=== PATIENT | female | born 1980 | race Caucasian/White ===

== ENCOUNTER → 2016-10-04 | Outpatient (CLI) | payer BC, OTHER ==
--- NOTE | 2016-10-07 05:47 | SLEEPHOME ---
DATE OF PROCEDURE: 10/04/2016 ORDERED BY: Willa Ruelas. INTERPRETATION: Diagnostic home sleep testing was performed due to concern for the obstructive sleep apnea syndrome in this patient with a history of excessive somnolence. For testing, a NOX-T3 respiratory monitoring device was utilized. Continuous record was made of pulse, oxygen saturation, chest and abdominal strain, air flow and body position. 9 hours and 59 minutes of data were reviewed. Of these, 8 hours and 25 minutes were marked as time in bed. During the interval marked time in bed, there were 139 respiratory events identified of 10 seconds in duration or greater for a respiratory event index of 16.5. The events were primarily obstructive but mixed and central apneas were also seen. Baseline pulse rate was 70 beats per minute. Pulse rate ranged 48-99. Baseline oxygen saturation 94%. Lowest oxygen saturation 82%. Testing was performed in both the supine and non-supine positions. IMPRESSION: Abnormal home sleep testing with repetitive respiratory events and oxygen desaturations to 82% and a respiratory event index of 16.5 is consistent with the obstructive sleep apnea syndrome. RECOMMENDATION: The patient should be referred for formal sleep evaluation and in laboratory pressure titration.
== END ==
LOC: M SLEEP 12:34
PROVIDERS: ATTEND Nurse Practitioner Adult Health
DX: G47.30 Sleep apnea, unspecified (principal); R40.0 Somnolence

== ENCOUNTER 2016-10-28 10:30 | Emergency (ER) | payer OTHER ==
[2016-10-28 11:30] LABS: ANION GAP 11 MEQ/L (8-16); BLOOD UREA NITROGEN 13 MG/DL (7-18); CALCIUM LEVEL 8.6 MG/DL (8.5-10.1); CARBON DIOXIDE LEVEL 23 MEQ/L (21-32); CHLORIDE LEVEL 106 MEQ/L (98-107); CREATININE FOR GFR 1.03 MG/DL (0.55-1.02); GLOMERULAR FILTRATION RATE > 60.0 (>60); GLUCOSE, FASTING 85 MG/DL (70-105); POTASSIUM SERUM 3.5 MEQ/L (3.5-5.1); SODIUM LEVEL 140 MEQ/L (136-145)
[2016-10-28 11:33] LABS: BASO % 0.3 % (0.0-1.0); EOS # 0.2 K/mm3 (0.0-0.50); EOS % 2.4 % (0.0-3.0); LARGE UNSTAINED CELL # 0.1 K/mm3 (0.0-0.4); LARGE UNSTAINED CELL % 1.7 % (0.0-4.0); LYMPH # 2.3 K/mm3 (1.5-4.5); LYMPH % 27.2 % (24.0-44.0); MEAN CORPUSCULAR HEMOGLOBIN 21.7 pg (27.0-33.0); MEAN CORPUSCULAR HGB CONC 31.1 g/dl (32.0-36.5); MEAN CORPUSCULAR VOLUME 69.6 fl (80.0-96.0); MONO # 0.4 K/mm3 (0.0-0.8); MONO % 4.7 % (0.0-5.0); NEUTROPHILS # 5.1 K/mm3 (1.8-7.7); NEUTROPHILS % 63.8 % (36.0-66.0); PLATELET COUNT, AUTOMATED 325 k/mm3 (150-450); RED CELL DISTRIBUTION WIDTH 15.8 % (11.5-14.5); WHITE BLOOD COUNT 8.1 K/mm3 (4.0-10.0)
--- NOTE | 2016-10-28 11:43 | REP ---
Head CT without contrast: History: Left sided facial droop. Comparison study: November 08, 2012. CT findings: Bone window settings demonstrate an intact bony calvarium. There is no evidence of skull fracture or incidental bony calvarial lesion. The visualized paranasal sinuses appear clear. No intraorbital abnormality is seen. On soft tissue window setting images; the lateral, third, and fourth ventricles are normal in size and position. Siddiqi-white differentiation pattern is normal above and below the tentorium. There are is no evidence of intracranial hemorrhage. No mass, edema, infarction, or midline shift is seen. No extra-axial fluid collection is appreciated. Impression: Negative noncontrast head CT. Signed by Matthew Cooper MD 10/28/2016 11:35 A
[2016-10-28 12:01] LABS: INR 1.07
[2016-10-28 12:04] LABS: ADD MORPHOLOGY? YES
[2016-10-28 12:05] LABS: ANISOCYTOSIS 2+; HYPOCHROMASIA 1+; MICROCYTOSIS 2+
[2016-10-28] MEDS ORDERED: ALTEPLASE 100MG INJ (J2997) As Ordered ONE (12:19)
[2016-10-28] MEDS ORDERED: LABETALOL HCL 100 MG/20 ML VIAL As Ordered ONE (12:57)
--- NOTE | 2016-10-28 13:17 | REP ---
CT of the brain without IV contrast: Comparison is the study performed at 11 27 a earlier today. A repeat is requested by the emergency room physician. There is no hemorrhage. The cortical stripe is unremarkable. Ventricles are normal size and midline. There is no edema, mass effect or midline shift. The paranasal sinuses and mastoids are unremarkable. Impression: There is no hemorrhage, acute infarct or mass. Negative CT study of the brain. No change from the prior study. Signed by Duarte Costello MD 10/28/2016 01:08 P
--- NOTE | 2016-10-28 13:21 | REP ---
AP PORTABLE CHEST: 10/28/2016 Clinical history: Chest pain. Findings: Seated AP portable exam at 12:23 p.m. compared to 04/23/2013, 01/12/2010. The lung valles are well inflated. There is no effusion, infiltrate, atelectasis or mass. Heart is normal for projection and portable technique. There is no vascular redistribution or edema. The aorta is normal. Airway intact. Bony thorax without acute finding. Impression: 1. No acute cardiopulmonary change. Signed by Lexa Beard MD 10/28/2016 04:46 P
--- NOTE | 2016-10-28 13:41 | EDDOCDS ---
Nurse's Notes [facility] Name: Sara Alcantar Age: 36 yrs Sex: Female : 1980 Arrival Date: 10/28/2016 Time: 10:30 Bed 2 Private MD: Artemio Lock M.D. Diagnosis: Cerebral infarction, unspecified-ischemic Presentation: 10/28 10:32 Presenting complaint: Patient states: noted a left sided facial droop and difficulty pml speaking around 1000. 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 EMS reports no other neuro deficits. FSBG 113. The last date and time the patient was known to be well was was at 10:00 on October 28, 2016. An acute neurological deficit is present. The charge nurse has been notified. The patient has been moved to a treatment area. The patients blood glucose was checked before arriving to the hospital and was found to be normal. Adult Sepsis Screening: The patient does not have new or worsening altered mentation. Patient's respiratory rate is less than 22. Systolic blood pressure is greater than 100. Patient has a qSOFA score of 0- Negative Sepsis Screen. Suicide/Homicide risk assessment- the patient denies having any suicidal and/or homicidal ideations and does not present with any other emotional, behavioral or mental health complaints. Status: Patient is not a rn support services or dependent. Transition of care: patient was not received from another setting of care. 10:32 Acuity: LEXIE Level 3 pml 10:32 Method Of Arrival: Ambulance pml Triage Assessment: 10:39 The onset of the patients symptoms was less than three hours ago. General: Appears in pml no apparent distress, comfortable, Behavior is appropriate for age, cooperative. Pain: Denies pain. HIV screening NA for this visit Offered previously. The patient is triaged at the bedside. See Assessment in Nurses Notes section of ED record. Neurological: Level of Consciousness is awake, alert, Oriented to person, place, time, Meteorological Equipment Repairer are equal bilaterally Moves all extremities. Speech is slurred, Facial droop on left, Facial symmetry: tongue is midline, Pupils are PERRLA, decreased sensation to left side of face. Reports no additional symptoms. Cardiovascular: Capillary refill < 3 seconds Rhythm is sinus rhythm No ectopy. Respiratory: Airway is patent Respiratory effort is even, unlabored, Respiratory pattern is regular, symmetrical. GI: Abdomen is non- distended obese. Derm: Skin is pink, warm & dry. DIRECTOR COUNCIL ON AGING: 10:39 LMP 10/09/2015 pml Historical: - Allergies: PENICILLINS (Rash); Morphine (Vomit); Betadine (Rash); - Home Meds: 1. omeprazole 40 mg Oral cpDR 1 cap once daily 2. Lasix 20 mg oral tab 1 tab as needed (Last dose: 10/27/2016) 3. triamterene-hydrochlorothiazid 37.5-25 mg Oral tab 1 tab once daily (Last dose: 10/27/2016) - PMHx: Hypertension; GERD; - PSHx: salivary gland removed from left; parotid gland removed; Tonsillectomy; Adenoidectomy; - Social history: Smoking status: Patient states was never smoker of tobacco. No barriers to communication noted, The patient speaks fluent Yi, Speaks appropriately for age. - Family history: Not pertinent. - : The pt / caregiver states he / she is not on anticoagulants. Home medication list is obtained from the patient. - Exposure Risk Screening:: None identified. Screenin:23 Screening information is obtained from the patient. Fall risk: No risks identified. pml Assistance ADL's: requires no assistance with activities of daily living. Abuse/DV Screen: The patient / caregiver reports he/she is: not in a situation that causes fear, pain or injury. Nutritional screening: No deficits noted. Advance Directives: Currently, there is no health care proxy. home support is adequate. Assessment: 11:23 General: see triage note. pml 12:00 General: consulted with telemedicine. recommending TPA therapy . pml 12:11 General: Appears well nourished, well groomed, Behavior is appropriate for age, pml cooperative, crying. Pain: Denies pain. Neurological: Level of Consciousness is awake, alert, Oriented to person, place, time, Meteorological Equipment Repairer are equal bilaterally Moves all extremities. Cardiovascular: Capillary refill < 3 seconds. Cardiovascular: Rhythm is sinus rhythm No ectopy. Respiratory: Airway is patent Respiratory effort is even, unlabored. GI: Abdomen is non- distended obese. Derm: Skin is pink, warm & dry. 12:35 Neurological: Level of Consciousness is awake, alert, Oriented to person, place, time, pml Meteorological Equipment Repairer are equal bilaterally Moves all extremities. Speech is slurred, Facial droop on left. 12:50 General: pt reports change in symptoms - states right side of face feels numb. neuro pml check show new reported "heaviness" to right lower extremity. remote sensing specialist equal and range of motion intact, no change, facial droop to left persists, no changes. pupils equal and reactive - no change. MD Alvarez notified and pt to CT for repeat CT Scan. 13:07 Neurological: Level of Consciousness is awake, alert, Oriented to person, place, time, pml Meteorological Equipment Repairer are equal bilaterally Moves all extremities. Weakness in right leg(s) Speech is slurred, Facial droop on left, Facial symmetry: tongue is midline, Pupils are PERRLA, Numbness in right cheek and left cheek. 13:25 Neurological: Level of Consciousness is awake, alert, Oriented to person, place, time, pml Meteorological Equipment Repairer are equal bilaterally Moves all extremities. Speech is slurred, Facial droop on left, Facial symmetry: tongue is midline, Pupils are PERRLA, Numbness in left cheek. 13:36 General: Appears in no apparent distress, Behavior is appropriate for age, cooperative, pml crying. Pain: Denies pain. Neurological: Level of Consciousness is awake, alert, Oriented to person, place, time, Moves all extremities. Speech is slurred, Facial droop on left, Facial symmetry: tongue is midline, Numbness in left cheek. Cardiovascular: Capillary refill < 3 seconds Rhythm is sinus rhythm No ectopy. Respiratory: Airway is patent Respiratory effort is even, unlabored. GI: Abdomen is non- distended obese. Derm: Skin is pink, warm & dry. Vital Signs: 10:39 BP 165 / 100; Pulse 74; Resp 20; Temp 99.1(TE); Pulse Ox 100% on R/A; Weight 127.46 kg; pml Height 5 ft. 4 in. (162.56 cm); Pain 0/10; 11:45 BP 162 / 96 (auto/); pml 11:46 Pulse 75 MON; Pulse Ox 99% ; pml 12:00 BP 174 / 108 (auto/); pml 12:00 Pulse 71 MON; Pulse Ox 100% ; pml 12:42 BP 184 / 106 (auto/); pml 12:43 Pulse 63 MON; Pulse Ox 100% ; pml 12:45 BP 195 / 116 (auto/); pml 12:45 Pulse 64 MON; Pulse Ox 99% ; pml 12:59 BP 156 / 88 LA (man/lg); pml 12:59 Pulse 68 MON; Pulse Ox 99% ; pml 12:59 BP 147 / 73 (auto/); pml 13:01 BP 148 / 77 (auto/); pml 13:02 Pulse 64 MON; Pulse Ox 94% ; pml 13:16 BP 149 / 87 (auto/); pml 13:17 Pulse 64 MON; Pulse Ox 99% ; pml 13:36 BP 150 / 84; Pulse 62; Resp 18; Temp 98.8; Pulse Ox 100% ; Pain 0/10; pml 10:39 Body Mass Index 48.23 (127.46 kg, 162.56 cm) [facility] Vitals: 10:39 Glucose Measurement D-stick done by EMS. Log In Time N/A - ambulance arrival. [facility] ED Course: 10:31 Patient visited by Nai Pearce, Light Bulb Replacer. lbd 10:31 Patient moved to Waiting lbd 10:32 Artemio Lock is Private Physician. lbd 10:32 Kirti Pérez,SCOTT is Primary Nurse. lbd 10:32 Esther Olson,SCOTT is Primary Nurse. lbd 10:32 Susan Lion DO is PHCP. jo4 10:32 Patient moved to 8 lbd 10:33 Dagoberto Alvarez MD is Attending Physician. jo4 10:36 Triage Initiated pml 10:41 Patient visited by Esther Olson,SCOTT. pml 10:55 Patient visited by Susan Lion DO. jo4 10:55 Patient visited by Susan Lion DO. jo4 11:22 [facility] Payment Agreement was scanned into [employer] and attached to record. lg 11:23 The patient / caregiver is instructed regarding the plan of care and ED course. Patient pml has correct armband on for positive identification. Placed in gown. Bed in low position. Call light in reach. Side rails up X2. campus monitor on. Pulse ox on. NIBP on. 11:23 Inserted peripheral IV: 18gauge IV in left forearm Patient tolerated the procedure well.pml 11:24 Patient visited by Esther Olson,SCOTT. pml 11:44 Patient moved to 2 jmk 11:48 Partial Thromboplastin Time Sent. jmk 11:48 Prothrombin Time Profile\\E\\INR Sent. jmk 11:48 Type & Screen Sent. jmk 11:55 CT Head Without Contrast Returned. EDMS 12:36 Patient visited by Esther Olson,SCOTT. pml 12:44 Patient visited by Merced Vela PCA. rs6 12:44 EKG done. (by ED staff). Reviewed by Dagoberto Alvarez MD. rs6 12:52 Patient visited by Esther Olson,SCOTT. pml 13:08 Patient visited by Esther Olson,SCOTT. pml 13:20 CT Head Without Contrast Returned. EDMS 13:24 Patient visited by Esther Olson RN. pml 13:25 Patient visited by Esther Olson,SCOTT. pml 13:33 Other: TELESTROKE CONSULT was scanned into [employer] and attached to record. rs6 13:34 ECG/EKG was scanned into [employer] and attached to record. rs6 13:36 No procedures done that require assistance. pml 13:37 Consents was scanned into [employer] and attached to record. rs6 13:38 Patient visited by Esther Olson RN. pml Administered Medications: 12:29 Drug: Alteplase- bolus dose (0.9mg/kg x 0.1 = 0.09mg/kg, max dose 9mg) 9 mg [alteplase hs1 100 mg intravenous solution (9 mg)] Route: IVP; Infused Over: 1 mins; Site: right antecubital; 12:30 Drug: Alteplase- infusion dose (0.9mg/kg x 0.9 = 0.81mg/kg, max dose 81mg) 81 mg hs1 [alteplase 100 mg intravenous solution] {Note: 81ml/hr.} Route: IV; Rate: 1 mL/hr; Infused Over: 60 mins; Site: right antecubital; 13:37 Follow up: IV Status: Completed infusion; IV Intake: 81ml pml 13:37 Not Given (Other Intervention Used): Labetalol (CVA) 10 mg IVP at bolus every 10 pml minutes; Hold if SBP <185mm Hg. Start infusion after boluses completed. x2 Attachments: 13:37 Consents rs6 Intake: 13:37 IV: 81.00ml; Total: 81.00ml. pml Output: 13:40 Urine: 600.00ml (Goodman); Total: 600.00ml. pml Order Results: Lab Order: CBC with Diff; SPEC'M 10/28/16 10:56 Test: WHITE BLOOD COUNT; Value: 8.1; Range: 4.0-10.0; Units: K/mm3; Status: F Test: RED BLOOD COUNT; Value: 5.26; Range: 4.00-5.40; Units: M/mm3; Status: F Test: HEMOGLOBIN; Value: 11.4; Range: 12.0-16.0; Abnormal: Below low normal; Units: g/dl; Status: F Test: HEMATOCRIT; Value: 36.6; Range: 36.0-47.0; Units: %; Status: F Test: MEAN CORPUSCULAR VOLUME; Value: 69.6; Range: 80.0-96.0; Abnormal: Below low normal; Units: fl; Status: F Test: MEAN CORPUSCULAR HEMOGLOBIN; Value: 21.7; Range: 27.0-33.0; Abnormal: Below low normal; Units: pg; Status: F Test: MEAN CORPUSCULAR HGB CONC; Value: 31.1; Range: 32.0-36.5; Abnormal: Below low normal; Units: g/dl; Status: F Test: RED CELL DISTRIBUTION WIDTH; Value: 15.8; Range: 11.5-14.5; Abnormal: Above high normal; Units: %; Status: F Test: PLATELET COUNT, AUTOMATED; Value: 325; Range: 150-450; Units: k/mm3; Status: F Test: NEUTROPHILS %; Value: 63.8; Range: 36.0-66.0; Units: %; Status: F Test: LYMPH %; Value: 27.2; Range: 24.0-44.0; Units: %; Status: F Test: MONO %; Value: 4.7; Range: 0.0-5.0; Units: %; Status: F Test: EOS %; Value: 2.4; Range: 0.0-3.0; Units: %; Status: F Test: BASO %; Value: 0.3; Range: 0.0-1.0; Units: %; Status: F Test: LARGE UNSTAINED CELL %; Value: 1.7; Range: 0.0-4.0; Units: %; Status: F Test: NEUTROPHILS #; Value: 5.1; Range: 1.8-7.7; Units: K/mm3; Status: F Test: LYMPH #; Value: 2.3; Range: 1.5-4.5; Units: K/mm3; Status: F Test: MONO #; Value: 0.4; Range: 0.0-0.8; Units: K/mm3; Status: F Test: EOS #; Value: 0.2; Range: 0.0-0.50; Units: K/mm3; Status: F Test: BASO #; Value: 0.0; Range: 0.0-0.2; Units: K/mm3; Status: F Test: LARGE UNSTAINED CELL #; Value: 0.1; Range: 0.0-0.4; Units: K/mm3; Status: F Lab Order: [facility]; SPEC'M 10/28/16 10:56 Test: GLUCOSE, FASTING; Value: 85; Range: 70-105; Units: MG/DL; Status: F Test: BLOOD UREA NITROGEN; Value: 13; Range: 7-18; Units: MG/DL; Status: F Test: CREATININE FOR GFR; Value: 1.03; Range: 0.55-1.02; Abnormal: Above high normal; Units: MG/DL; Status: F Test: GLOMERULAR FILTRATION RATE; Value: > 60.0; Range: >60; Status: F Test: SODIUM LEVEL; Value: 140; Range: 136-145; Units: MEQ/L; Status: F Test: POTASSIUM SERUM; Value: 3.5; Range: 3.5-5.1; Units: MEQ/L; Status: F Test: CHLORIDE LEVEL; Value: 106; Range: 98-107; Units: MEQ/L; Status: F Test: CARBON DIOXIDE LEVEL; Value: 23; Range: 21-32; Units: MEQ/L; Status: F Test: ANION GAP; Value: 11; Range: 8-16; Units: MEQ/L; Status: F Test: CALCIUM LEVEL; Value: 8.6; Range: 8.5-10.1; Units: MG/DL; Status: F Test Note: ; Units are mL/min/1.73 m2 Chronic Kidney Disease Staging per NKF: Stage I & II GFR >=60 Normal to Mildly Decreased Stage III GFR 30-59 Moderately Decreased Stage IV GFR 15-29 Severely Decreased Stage V GFR <15 Very Little GFR Left ESRD GFR <15 on CATALOG SPECIALIST Lab Order: Partial Thromboplastin Time; [facility] 10:56 Test: PARTIAL THROMBOPLASTIN TIME; Value: 24.9; Range: 26.6-37.1; Abnormal: Below low normal; Units: SECONDS; Status: F Lab Order: Prothrombin Time Profile\\E\\INR; [facility] 10:56 Test: PROTHROMBIN TIME; Value: 14.0; Range: 12.3-14.5; Units: SECONDS; Status: F Test: INR; Value: 1.07; Status: F Test Note: ; THERAPUTIC HUMAN INR VALUES INDICATIONS NORMAL RANGES PROPHYLAXIS/TREATMENT OF: VENOUS THROMBOSIS 2.0-3.0 PULMONARY EMBOLISM 2.0-3.0 PREVENTION OF SYSTEMIC EMBOLISM FROM: TISSUE HEART VALVES 2.0-3.0 ACUTE MYOCARDIAL INFARCTION 2.0-3.0 VALVULAR HEART DISEASE 2.0-3.0 ATRIAL FIBRILLATION 2.0-3.0 MECHANICAL VALVES(HIGH RISK) 2.5-3.5 RECURRENT MYOCARDIAL INFARCTION 2.5-3.5 Lab Order: Type & Screen; 10/28/16 10:56 Test: BLOOD TYPE; Value: A POS; Status: F Test: AB SCREEN (INDIRECT KATLYN)GEL; Value: NEGATIVE; Status: F Lab Order: RBC MORPH PROF NO CHARGE; 10/28/16 10:56 Test: HYPOCHROMASIA; Value: 1+; Status: F Test: ANISOCYTOSIS; Value: 2+; Status: F Test: MICROCYTOSIS; Value: 2+; Status: F Test: PLATELET ESTIMATE; Value: NORMAL; Range: NORMAL; Status: F Radiology Order: CT Head Without Contrast Test: CT Head Without Contrast REASON FOR EXAMINATION: Left-sided facial droop; Head CT without contrast:; ; History: Left sided facial droop.; ; Comparison study: November 08, 2012.; ; CT findings: Bone window settings demonstrate an intact bony calvarium. There; is no evidence of skull fracture or incidental bony calvarial lesion. The; visualized paranasal sinuses appear clear. No intraorbital abnormality is seen.; On soft tissue window setting images; the lateral, third, and fourth ventricles; are normal in size and position. Siddiqi-white differentiation pattern is normal; above and below the tentorium. There are is no evidence of intracranial; hemorrhage. No mass, edema, infarction, or midline shift is seen. No; extra-axial fluid collection is appreciated.; ; Impression:; ; Negative noncontrast head CT.; ; ; Signed by; Matthew Cooper MD 10/28/2016 11:35 A; Radiology Order: CT Head Without Contrast Test: CT Head Without Contrast REASON FOR EXAMINATION: MD request repeat; CT of the brain without IV contrast:; ; Comparison is the study performed at 11 27 a earlier today. A repeat is; requested by the emergency room physician.; ; There is no hemorrhage. The cortical stripe is unremarkable. Ventricles are; normal size and midline. There is no edema, mass effect or midline shift. The; paranasal sinuses and mastoids are unremarkable.; ; Impression:; ; There is no hemorrhage, acute infarct or mass. Negative CT study of the brain.; No change from the prior study.; ; ; Signed by; Duarte Costello MD 10/28/2016 01:08 P; Outcome: 12:22 ER care complete, transfer ordered by Provider. pc 13:36 Discharge Assessment: Patient awake, alert and oriented x 3. No cognitive and/or pml functional deficits noted. Patient verbalized understanding of disposition instructions. patient administered narcotics - no. The following High Risk Discharge criteria are identified: Yes, Acute CVA. Transferred to [facility]. by EMS ground [place] ambulance report to accompanying personnel Accounting Lecturer Emre Cox. Condition: stable. CT Study completed. Admission hand-off: Report called to [facility]. Property :Personal belongings accompany Pt. 13:40 Patient left the ED. pml Signatures: Dispatcher [employer] EDMS Dagoberto Alvarez MD MD pc Daly, Linda, Light Bulb Replacer Unit lbd Db Thompson RN RN jmk Ganter, LoriLee, Scott Reg Livia Juarez RN RN hs1 Esther Olson RN RN pml Merced Vela, FIELD CARE COORDINATOR FIELD CARE COORDINATOR rs6 Susan Lion DO DO jo4 Corrections: (The following items were deleted from the chart) 11:52 10:39 Home Meds: Lisinopril Oral once daily (Last Dose: 10/27/2016); pml pml 11:52 10:39 Home Meds: Lasix Oral once daily (Last Dose: 10/27/2016); pml pml 12:30 12:29 Alteplase- infusion dose (0.9mg/kg x 0.9 = 0.81mg/kg, max dose 81mg) 81 mg IV at hs1 1 mL/hr in right antecubital over 60 mins hs1 MTDD
--- NOTE | 2016-10-28 13:41 | EDDOCDS ---
Physician Documentation [facility] Name: Sara Alcantar Age: 36 yrs Sex: Female : 1980 Arrival Date: 10/28/2016 Time: 10:30 Bed 2 Private MD: Artemio Lock M.D. Disposition: 10/28 12:13 Critical Care:. pc Disposition: 10/28/16 12:22 Transfer ordered to [facility]. Diagnosis is Cerebral infarction, unspecified - ischemic. - Reason for transfer: Higher level of care. - Accepting physician is Dr. Ferrer. - Condition is Stable. - Problem is new. - Symptoms are unchanged. Historical: - Allergies: PENICILLINS (Rash); Morphine (Vomit); Betadine (Rash); - Home Meds: 1. omeprazole 40 mg Oral cpDR 1 cap once daily 2. Lasix 20 mg oral tab 1 tab as needed (Last dose: 10/27/2016) 3. triamterene-hydrochlorothiazid 37.5-25 mg Oral tab 1 tab once daily (Last dose: 10/27/2016) - PMHx: Hypertension; GERD; - PSHx: salivary gland removed from left; parotid gland removed; Tonsillectomy; Adenoidectomy; - Social history: Smoking status: Patient states was never smoker of tobacco. No barriers to communication noted, The patient speaks fluent Telugu, Speaks appropriately for age. - Family history: Not pertinent. - : The pt / caregiver states he / she is not on anticoagulants. Home medication list is obtained from the patient. - Exposure Risk Screening:: None identified. [employer]: 10:39 LMP 10/09/2015 pml Exam: 12:13 Neuro: oriented x 3, no motor deficits, no sensory deficits, normal gait, cranial pc nerves normal except for a facial droop noted on left, with forehead spared, decreased sensation on forehead, left cheek and left eye, NIH 2. Vital Signs: 10:39 BP 165 / 100; Pulse 74; Resp 20; Temp 99.1(TE); Pulse Ox 100% on R/A; Weight 127.46 kg pml / 281 lbs; Height 5 ft. 4 in. (162.56 cm); Pain 0/10; 11:45 BP 162 / 96 (auto/); pml 11:46 Pulse 75 MON; Pulse Ox 99% ; pml 12:00 BP 174 / 108 (auto/); pml 12:00 Pulse 71 MON; Pulse Ox 100% ; pml 12:42 BP 184 / 106 (auto/); pml 12:43 Pulse 63 MON; Pulse Ox 100% ; pml 12:45 BP 195 / 116 (auto/); pml 12:45 Pulse 64 MON; Pulse Ox 99% ; pml 12:59 BP 156 / 88 LA (man/lg); pml 12:59 Pulse 68 MON; Pulse Ox 99% ; pml 12:59 BP 147 / 73 (auto/); pml 13:01 BP 148 / 77 (auto/); pml 13:02 Pulse 64 MON; Pulse Ox 94% ; pml 13:16 BP 149 / 87 (auto/); pml 13:17 Pulse 64 MON; Pulse Ox 99% ; pml 13:36 BP 150 / 84; Pulse 62; Resp 18; Temp 98.8; Pulse Ox 100% ; Pain 0/10; pml 10:39 Body Mass Index 48.23 (127.46 kg, 162.56 cm) pml MDM: 11:13 CT Head Without Contrast Ordered. EDMS 11:14 CBC with Diff Ordered. EDMS 11:14 BMP Ordered. EDMS 11:20 Financial registration complete. lg 11:22 [facility] Payment Agreement was scanned into [employer] and attached to record. lg 11:40 BMP Reviewed. jo4 11:44 Consult [facility]: Telemedicine Stroke Attending ordered. pc 11:44 Senior Economist/Pulse Ox/q 15 min VS ordered. pc 11:44 IV Saline Lock ordered. pc 11:44 Neuro VS q 15 Minutes ordered. pc 11:44 Patient must be on CC stretcher and weighed via bed scale ordered. pc 11:44 Rhythm Strip to chart ordered. pc 11:44 Stroke assessment pack to bedside ordered. pc 11:44 Partial Thromboplastin Time Ordered. EDMS 11:44 Prothrombin Time Profile\E\INR Ordered. EDMS 11:44 Type & Screen Ordered. EDMS 11:44 Chest, 1 View Ordered. EDMS 11:45 ECG WITH READING ER PHYS+CARDIAG ordered. EDMS 11:49 Consult [facility]: Telemedicine Stroke Attending complete. pc 11:58 CT Head Without Contrast Reviewed. pc 12:05 RBC MORPH PROF NO CHARGE Ordered. EDMS 12:12 Partial Thromboplastin Time Reviewed. jo4 12:12 Alteplase- bolus dose (0.9mg/kg x 0.1 = 0.09mg/kg, max dose 9mg) 9 mg IVP bolus over 1 pc mins ordered. 12:12 Alteplase- infusion dose (0.9mg/kg x 0.9 = 0.81mg/kg, max dose 81mg) 81 mg IV at 1 pc mL/hr once over 60 mins; Do not filter. Flush line with 50mL NS after infusion complete. ordered. 12:12 Avoid arterial punctures or frequent veno-punctures ordered. pc 12:12 Senior Economist/BP q 15 minutes/Neurovitals Q 15 minutes for 2 hours after rTPA ordered.pc 12:12 DO NOT insert Goodman AFTER tPA started ordered. pc 12:12 IV Saline Lock, Place second line, 18G or larger, in A/C vein ordered. pc 12:12 If SBP < 185mm Hg and/or DBP < 100mm Hg, proceed to rTPA ordered. pc 12:12 No Heparin, LMW Heparin, Warfarin, other anticoagulants (Pradaxa, Xarelto, etc.) or pc Antiplatelt Agents, (ASA, clopidogrel) from start of t-PA infusion ordered. 12:12 Notify MD if SBP >185mm Hg or <90mm Hg after t-PA initiated ordered. pc 12:12 Vital Signs, Neuro checks q15min for 2 hrs after t-PA infusion, then q30 min x 6 hrs pc ordered. 12:13 Prothrombin Time Profile\E\INR Reviewed. jo4 12:13 Differential Diagnosis: CVA v Tang's; prior parotid surgeries. Plan: CT, d/w [facility]. The patient has been re-examined and re-evaluated. There is no appreciated change of the patient's symptoms at this time. Physician consultation: Dr. Ferrer regarding patient's condition, and via Telemedicine, he has decided that she requires thrombolytic therapy, she has consented and she will be transferred to [facility]. Disposition: The historical points, examination findings, and any diagnostic results supporting the provided diagnosis, were discussed with the patient or legal guardian. The decision to transfer to the patient to another facility was explained. 12:30 Alteplase- infusion dose (0.9mg/kg x 0.9 = 0.81mg/kg, max dose 81mg) 81 mg IV at 1 hs1 mL/hr once over 60 mins; Do not filter. Flush line with 50mL NS after infusion complete. ordered. 12:39 Test interpretation: EKG. pc 12:49 CT Head Without Contrast Ordered. EDMS 12:50 Labetalol (CVA) 10 mg IVP at bolus every 10 minutes; Hold if SBP <185mm Hg. Start pc infusion after boluses completed. x2 ordered. 12:51 CBC with Diff Reviewed. pc 12:51 Type & Screen Reviewed. pc 12:51 RBC MORPH PROF NO CHARGE Reviewed. pc 13:12 Test interpretation: X-RAY - interpreted by Radiologist and personally reviewed, 1 view pc chest normal, interpreted by Radiologist and personally reviewed, Head CT; normal, and 2nd CT, after patient complained of right leg and facial symptoms during alteplase infusion, was also negative. 13:33 Other: TELESTROKE CONSULT was scanned into [employer] and attached to record. rs6 13:34 ECG/EKG was scanned into [facility] [employer] and attached to record. rs 13:37 Consents was scanned into [employer] and attached to record. rs6 EC:39 Rate is 69 beats/min. Rhythm is regular, Normal Sinus Rhythm. MT interval is normal. pc QRS interval is normal. QT interval is normal. No Q waves. T waves are Normal. No ST changes noted. Clinical impression: Normal Sinus Rhythm and LAFB. Administered Medications: 12:29 Drug: Alteplase- bolus dose (0.9mg/kg x 0.1 = 0.09mg/kg, max dose 9mg) 9 mg [alteplase hs1 100 mg intravenous solution (9 mg)] Route: IVP; Infused Over: 1 mins; Site: right antecubital; 12:30 Drug: Alteplase- infusion dose (0.9mg/kg x 0.9 = 0.81mg/kg, max dose 81mg) 81 mg hs1 [alteplase 100 mg intravenous solution] {Note: 81ml/hr.} Route: IV; Rate: 1 mL/hr; Infused Over: 60 mins; Site: right antecubital; 13:37 Follow up: IV Status: Completed infusion; IV Intake: 81ml pml 13:37 Not Given (Other Intervention Used): Labetalol (CVA) 10 mg IVP at bolus every 10 pml minutes; Hold if SBP <185mm Hg. Start infusion after boluses completed. x2 Critical Care Time: 12:13 Critical care time: Bedside Care: 35 minutes, Consultation: 20 minutes, Family pc Intervention: 20 minutes. Total time: 75 minutes Signatures: Dispatcher [employer] Dagoberto Sanchez MD MD pc Ganter, LoriLee, Reg Reg lg Livia Esparza RN RN hs1 Esther Olson RN RN pml Merced Vela, SAGE [employer] SALES EXECUTIVE rs6 Susan Lion, DO LEMA jo4 The chart was reviewed and I authenticate all verbal orders and agree with the evaluation and treatment provided.Corrections: (The following items were deleted from the chart) 11:49 11:44 Accucheck ordered. pc shyk 11:52 10:39 Home Meds: Lisinopril Oral once daily (Last Dose: 10/27/2016); pml pml 11:52 10:39 Home Meds: Lasix Oral once daily (Last Dose: 10/27/2016); pml pml Attachments: 11:22 [facility] Payment Agreement lg 13:34 ECG/EKG rs6 MTDD
--- NOTE | 2016-10-29 08:50 | ECGEPIP ---
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
--- NOTE | 2016-10-30 14:41 | EDDOCDS ---
Nurse's Notes [facility] Name: Queenie Alcantar Age: 36 yrs Sex: Female : 1980 Arrival Date: 10/28/2016 Time: 10:30 Bed 2 Private MD: Artemio Lock M.D. Diagnosis: Cerebral infarction, unspecified-ischemic Presentation: 10/28 10:32 Presenting complaint: Patient states: noted a left sided facial droop and difficulty pml speaking around 1000. 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 EMS reports no other neuro deficits. FSBG 113. The last date and time the patient was known to be well was was at 10:00 on October 28, 2016. An acute neurological deficit is present. The charge nurse has been notified. The patient has been moved to a treatment area. The patients blood glucose was checked before arriving to the hospital and was found to be normal. Adult Sepsis Screening: The patient does not have new or worsening altered mentation. Patient's respiratory rate is less than 22. Systolic blood pressure is greater than 100. Patient has a qSOFA score of 0- Negative Sepsis Screen. Suicide/Homicide risk assessment- the patient denies having any suicidal and/or homicidal ideations and does not present with any other emotional, behavioral or mental health complaints. 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 Transition of care: patient was not received from another setting of care. 10:32 Acuity: LEXIE Level 3 pml 10:32 Method Of Arrival: Ambulance pml Triage Assessment: 10:39 The onset of the patients symptoms was less than three hours ago. General: Appears in pml no apparent distress, comfortable, Behavior is appropriate for age, cooperative. Pain: Denies pain. HIV screening NA for this visit Offered previously. The patient is triaged at the bedside. See Assessment in Nurses Notes section of ED record. Neurological: Level of Consciousness is awake, alert, Oriented to person, place, time, Wiping Cloth Cutter are equal bilaterally Moves all extremities. Speech is slurred, Facial droop on left, Facial symmetry: tongue is midline, Pupils are PERRLA, decreased sensation to left side of face. Reports no additional symptoms. Cardiovascular: Capillary refill < 3 seconds Rhythm is sinus rhythm No ectopy. Respiratory: Airway is patent Respiratory effort is even, unlabored, Respiratory pattern is regular, symmetrical. GI: Abdomen is non- distended obese. Derm: Skin is pink, warm & dry. DATA COLLECTOR: 10:39 LMP 10/09/2015 pml Historical: - Allergies: PENICILLINS (Rash); Morphine (Vomit); Betadine (Rash); - Home Meds: 1. omeprazole 40 mg Oral cpDR 1 cap once daily 2. Lasix 20 mg oral tab 1 tab as needed (Last dose: 10/27/2016) 3. triamterene-hydrochlorothiazid 37.5-25 mg Oral tab 1 tab once daily (Last dose: 10/27/2016) - PMHx: Hypertension; GERD; - PSHx: salivary gland removed from left; parotid gland removed; Tonsillectomy; Adenoidectomy; - Social history: Smoking status: Patient states was never smoker of tobacco. No barriers to communication noted, The patient speaks fluent Syriac, Speaks appropriately for age. - Family history: Not pertinent. - : The pt / caregiver states he / she is not on anticoagulants. Home medication list is obtained from the patient. - Exposure Risk Screening:: None identified. Screenin:23 Screening information is obtained from the patient. Fall risk: No risks identified. pml Assistance ADL's: requires no assistance with activities of daily living. Abuse/DV Screen: The patient / caregiver reports he/she is: not in a situation that causes fear, pain or injury. Nutritional screening: No deficits noted. Advance Directives: Currently, there is no health care proxy. home support is adequate. Assessment: 11:23 General: see triage note. pml 12:00 General: consulted with telemedicine. recommending TPA therapy . pml 12:11 General: Appears well nourished, well groomed, Behavior is appropriate for age, pml cooperative, crying. Pain: Denies pain. Neurological: Level of Consciousness is awake, alert, Oriented to person, place, time, Wiping Cloth Cutter are equal bilaterally Moves all extremities. Cardiovascular: Capillary refill < 3 seconds. Cardiovascular: Rhythm is sinus rhythm No ectopy. Respiratory: Airway is patent Respiratory effort is even, unlabored. GI: Abdomen is non- distended obese. Derm: Skin is pink, warm & dry. 12:35 Neurological: Level of Consciousness is awake, alert, Oriented to person, place, time, pml Wiping Cloth Cutter are equal bilaterally Moves all extremities. Speech is slurred, Facial droop on left. 12:50 General: pt reports change in symptoms - states right side of face feels numb. neuro pml check show new reported "heaviness" to right lower extremity. wheel and pinion inspector equal and range of motion intact, no change, facial droop to left persists, no changes. pupils equal and reactive - no change. MD Alvarez notified and pt to CT for repeat CT Scan. 13:07 Neurological: Level of Consciousness is awake, alert, Oriented to person, place, time, pml Wiping Cloth Cutter are equal bilaterally Moves all extremities. Weakness in right leg(s) Speech is slurred, Facial droop on left, Facial symmetry: tongue is midline, Pupils are PERRLA, Numbness in right cheek and left cheek. 13:25 Neurological: Level of Consciousness is awake, alert, Oriented to person, place, time, pml Wiping Cloth Cutter are equal bilaterally Moves all extremities. Speech is slurred, Facial droop on left, Facial symmetry: tongue is midline, Pupils are PERRLA, Numbness in left cheek. 13:36 General: Appears in no apparent distress, Behavior is appropriate for age, cooperative, pml crying. Pain: Denies pain. Neurological: Level of Consciousness is awake, alert, Oriented to person, place, time, Moves all extremities. Speech is slurred, Facial droop on left, Facial symmetry: tongue is midline, Numbness in left cheek. Cardiovascular: Capillary refill < 3 seconds Rhythm is sinus rhythm No ectopy. Respiratory: Airway is patent Respiratory effort is even, unlabored. GI: Abdomen is non- distended obese. Derm: Skin is pink, warm & dry. Vital Signs: 10:39 BP 165 / 100; Pulse 74; Resp 20; Temp 99.1(TE); Pulse Ox 100% on R/A; Weight 127.46 kg; pml Height 5 ft. 4 in. (162.56 cm); Pain 0/10; 11:45 BP 162 / 96 (auto/); pml 11:46 Pulse 75 MON; Pulse Ox 99% ; pml 12:00 BP 174 / 108 (auto/); pml 12:00 Pulse 71 MON; Pulse Ox 100% ; pml 12:42 BP 184 / 106 (auto/); pml 12:43 Pulse 63 MON; Pulse Ox 100% ; pml 12:45 BP 195 / 116 (auto/); pml 12:45 Pulse 64 MON; Pulse Ox 99% ; pml 12:59 BP 156 / 88 LA (man/lg); pml 12:59 Pulse 68 MON; Pulse Ox 99% ; pml 12:59 BP 147 / 73 (auto/); pml 13:01 BP 148 / 77 (auto/); pml 13:02 Pulse 64 MON; Pulse Ox 94% ; pml 13:16 BP 149 / 87 (auto/); pml 13:17 Pulse 64 MON; Pulse Ox 99% ; pml 13:36 BP 150 / 84; Pulse 62; Resp 18; Temp 98.8; Pulse Ox 100% ; Pain 0/10; pml 10:39 Body Mass Index 48.23 (127.46 kg, 162.56 cm) [facility] Vitals: 10:39 Glucose Measurement D-stick done by EMS. Log In Time N/A - ambulance arrival. [facility] ED Course: 10:31 Patient visited by Nai Pearce, Joint Yarner. lbd 10:31 Patient moved to Waiting lbd 10:32 Artemio Lock is Private Physician. lbd 10:32 Kirti Pérez,SCOTT is Primary Nurse. lbd 10:32 Esther Olson,SCOTT is Primary Nurse. lbd 10:32 Susan Lion DO is PHCP. jo4 10:32 Patient moved to 8 lbd 10:33 Dagoberto Alvarez MD is Attending Physician. jo4 10:36 Triage Initiated pml 10:41 Patient visited by Esther Olson,SCOTT. pml 10:55 Patient visited by Susan Lion DO. jo4 10:55 Patient visited by Susan Lion DO. jo4 11:22 [facility] Payment Agreement was scanned into [employer] and attached to record. lg 11:23 The patient / caregiver is instructed regarding the plan of care and ED course. Patient pml has correct armband on for positive identification. Placed in gown. Bed in low position. Call light in reach. Side rails up X2. conveyor monitor on. Pulse ox on. NIBP on. 11:23 Inserted peripheral IV: 18gauge IV in left forearm Patient tolerated the procedure well.pml 11:24 Patient visited by Esther Olson,SCOTT. pml 11:44 Patient moved to 2 jmk 11:48 Partial Thromboplastin Time Sent. jmk 11:48 Prothrombin Time Profile\\E\\INR Sent. jmk 11:48 Type & Screen Sent. jmk 11:55 CT Head Without Contrast Returned. EDMS 12:36 Patient visited by Esther Olson,SCOTT. pml 12:44 Patient visited by Merced Vela PCA. rs6 12:44 EKG done. (by ED staff). Reviewed by Dagoberto Alvarez MD. rs6 12:52 Patient visited by Esther Olson,SCOTT. pml 13:08 Patient visited by Esther Olson,SCOTT. pml 13:20 CT Head Without Contrast Returned. EDMS 13:24 Patient visited by Esther Olson,SCOTT. pml 13:25 Patient visited by Esther Olson,SCOTT. pml 13:33 Other: TELESTROKE CONSULT was scanned into [employer] and attached to record. rs6 13:34 ECG/EKG was scanned into [employer] and attached to record. rs6 13:36 No procedures done that require assistance. pml 13:37 Consents was scanned into [employer] and attached to record. rs6 13:38 Patient visited by Esther Olson RN. pml 14:04 Chest, 1 View Returned. EDMS 15:25 T-Sheet-- Draft Copy was scanned into [employer] and attached to record. gb 15:26 Rhythm Strip was scanned into [employer] and attached to record. gb 02 09:23 EKG-ADULT Returned. EDMS Administered Medications: 10/28 12:29 Drug: Alteplase- bolus dose (0.9mg/kg x 0.1 = 0.09mg/kg, max dose 9mg) 9 mg [alteplase hs1 100 mg intravenous solution (9 mg)] Route: IVP; Infused Over: 1 mins; Site: right antecubital; 12:30 Drug: Alteplase- infusion dose (0.9mg/kg x 0.9 = 0.81mg/kg, max dose 81mg) 81 mg hs1 [alteplase 100 mg intravenous solution] {Note: 81ml/hr.} Route: IV; Rate: 1 mL/hr; Infused Over: 60 mins; Site: right antecubital; 13:37 Follow up: IV Status: Completed infusion; IV Intake: 81ml pml 13:37 Not Given (Other Intervention Used): Labetalol (CVA) 10 mg IVP at bolus every 10 pml minutes; Hold if SBP <185mm Hg. Start infusion after boluses completed. x2 Attachments: 13:37 Consents rs6 15:26 Rhythm Strip gb Intake: 13:37 IV: 81.00ml; Total: 81.00ml. pml Output: 13:40 Urine: 600.00ml (Goodman); Total: 600.00ml. pml Order Results: Lab Order: CBC with Diff; SPEC'M 10/28/16 10:56 Test: WHITE BLOOD COUNT; Value: 8.1; Range: 4.0-10.0; Units: K/mm3; Status: F Test: RED BLOOD COUNT; Value: 5.26; Range: 4.00-5.40; Units: M/mm3; Status: F Test: HEMOGLOBIN; Value: 11.4; Range: 12.0-16.0; Abnormal: Below low normal; Units: g/dl; Status: F Test: HEMATOCRIT; Value: 36.6; Range: 36.0-47.0; Units: %; Status: F Test: MEAN CORPUSCULAR VOLUME; Value: 69.6; Range: 80.0-96.0; Abnormal: Below low normal; Units: fl; Status: F Test: MEAN CORPUSCULAR HEMOGLOBIN; Value: 21.7; Range: 27.0-33.0; Abnormal: Below low normal; Units: pg; Status: F Test: MEAN CORPUSCULAR HGB CONC; Value: 31.1; Range: 32.0-36.5; Abnormal: Below low normal; Units: g/dl; Status: F Test: RED CELL DISTRIBUTION WIDTH; Value: 15.8; Range: 11.5-14.5; Abnormal: Above high normal; Units: %; Status: F Test: PLATELET COUNT, AUTOMATED; Value: 325; Range: 150-450; Units: k/mm3; Status: F Test: NEUTROPHILS %; Value: 63.8; Range: 36.0-66.0; Units: %; Status: F Test: LYMPH %; Value: 27.2; Range: 24.0-44.0; Units: %; Status: F Test: MONO %; Value: 4.7; Range: 0.0-5.0; Units: %; Status: F Test: EOS %; Value: 2.4; Range: 0.0-3.0; Units: %; Status: F Test: BASO %; Value: 0.3; Range: 0.0-1.0; Units: %; Status: F Test: LARGE UNSTAINED CELL %; Value: 1.7; Range: 0.0-4.0; Units: %; Status: F Test: NEUTROPHILS #; Value: 5.1; Range: 1.8-7.7; Units: K/mm3; Status: F Test: LYMPH #; Value: 2.3; Range: 1.5-4.5; Units: K/mm3; Status: F Test: MONO #; Value: 0.4; Range: 0.0-0.8; Units: K/mm3; Status: F Test: EOS #; Value: 0.2; Range: 0.0-0.50; Units: K/mm3; Status: F Test: BASO #; Value: 0.0; Range: 0.0-0.2; Units: K/mm3; Status: F Test: LARGE UNSTAINED CELL #; Value: 0.1; Range: 0.0-0.4; Units: K/mm3; Status: F Lab Order: [facility]; SPEC'M 10/28/16 10:56 Test: GLUCOSE, FASTING; Value: 85; Range: 70-105; Units: MG/DL; Status: F Test: BLOOD UREA NITROGEN; Value: 13; Range: 7-18; Units: MG/DL; Status: F Test: CREATININE FOR GFR; Value: 1.03; Range: 0.55-1.02; Abnormal: Above high normal; Units: MG/DL; Status: F Test: GLOMERULAR FILTRATION RATE; Value: > 60.0; Range: >60; Status: F Test: SODIUM LEVEL; Value: 140; Range: 136-145; Units: MEQ/L; Status: F Test: POTASSIUM SERUM; Value: 3.5; Range: 3.5-5.1; Units: MEQ/L; Status: F Test: CHLORIDE LEVEL; Value: 106; Range: 98-107; Units: MEQ/L; Status: F Test: CARBON DIOXIDE LEVEL; Value: 23; Range: 21-32; Units: MEQ/L; Status: F Test: ANION GAP; Value: 11; Range: 8-16; Units: MEQ/L; Status: F Test: CALCIUM LEVEL; Value: 8.6; Range: 8.5-10.1; Units: MG/DL; Status: F Test Note: ; Units are mL/min/1.73 m2 Chronic Kidney Disease Staging per NKF: Stage I & II GFR >=60 Normal to Mildly Decreased Stage III GFR 30-59 Moderately Decreased Stage IV GFR 15-29 Severely Decreased Stage V GFR <15 Very Little GFR Left ESRD GFR <15 on DRUM TENDER Lab Order: Partial Thromboplastin Time; 10/28/16 10:56 Test: PARTIAL THROMBOPLASTIN TIME; Value: 24.9; Range: 26.6-37.1; Abnormal: Below low normal; Units: SECONDS; Status: F Lab Order: Prothrombin Time Profile\\E\\INR; 10/28/16 10:56 Test: PROTHROMBIN TIME; Value: 14.0; Range: 12.3-14.5; Units: SECONDS; Status: F Test: INR; Value: 1.07; Status: F Test Note: ; THERAPUTIC HUMAN INR VALUES INDICATIONS NORMAL RANGES PROPHYLAXIS/TREATMENT OF: VENOUS THROMBOSIS 2.0-3.0 PULMONARY EMBOLISM 2.0-3.0 PREVENTION OF SYSTEMIC EMBOLISM FROM: TISSUE HEART VALVES 2.0-3.0 ACUTE MYOCARDIAL INFARCTION 2.0-3.0 VALVULAR HEART DISEASE 2.0-3.0 ATRIAL FIBRILLATION 2.0-3.0 MECHANICAL VALVES(HIGH RISK) 2.5-3.5 RECURRENT MYOCARDIAL INFARCTION 2.5-3.5 Lab Order: Type & Screen; 10/28/16 10:56 Test: BLOOD TYPE; Value: A POS; Status: F Test: AB SCREEN (INDIRECT KATLYN)GEL; Value: NEGATIVE; Status: F Lab Order: RBC MORPH PROF NO CHARGE; 10/28/16 10:56 Test: HYPOCHROMASIA; Value: 1+; Status: F Test: ANISOCYTOSIS; Value: 2+; Status: F Test: MICROCYTOSIS; Value: 2+; Status: F Test: PLATELET ESTIMATE; Value: NORMAL; Range: NORMAL; Status: F Radiology Order: CT Head Without Contrast Test: CT Head Without Contrast REASON FOR EXAMINATION: Left-sided facial droop; Head CT without contrast:; ; History: Left sided facial droop.; ; Comparison study: November 08, 2012.; ; CT findings: Bone window settings demonstrate an intact bony calvarium. There; is no evidence of skull fracture or incidental bony calvarial lesion. The; visualized paranasal sinuses appear clear. No intraorbital abnormality is seen.; On soft tissue window setting images; the lateral, third, and fourth ventricles; are normal in size and position. Siddiqi-white differentiation pattern is normal; above and below the tentorium. There are is no evidence of intracranial; hemorrhage. No mass, edema, infarction, or midline shift is seen. No; extra-axial fluid collection is appreciated.; ; Impression:; ; Negative noncontrast head CT.; ; ; Signed by; Matthew Cooper MD 10/28/2016 11:35 A; Radiology Order: Chest, 1 View Test: Chest, 1 View REASON FOR EXAMINATION: CVA <4.5hrs; AP PORTABLE CHEST: 10/28/2016; ; Clinical history: Chest pain.; ; Findings: Seated AP portable exam at 12:23 p.m. compared to 04/23/2013,; 01/12/2010. The lung valles are well inflated. There is no effusion,; infiltrate, atelectasis or mass. Heart is normal for projection and portable; technique. There is no vascular redistribution or edema. The aorta is normal.; Airway intact. Bony thorax without acute finding.; ; Impression:; ; 1. No acute cardiopulmonary change.; ; ; Signed by; Lexa Beard MD 10/28/2016 04:46 P; Radiology Order: EKG-ADULT Test: EKG-ADULT REASON FOR EXAMINATION: CVA <4.5hrs; Stationary ECG Study; [facility] - ED; ; Test Date: 2016-10-28; Pat Name: QUEENIE ALCANTAR Department:; Room: -; Gender: F Director Of Strategic Communications: rs; : 1980 Requested By: Dagoberto Bailey; Order Number: [id number] Reading MD: Cheryl George; Measurements; Intervals [place]; Rate: 69 P: 45; OH: 168 QRS: -1; QRSD: 101 T: 11; QT: 439; QTc: 472; Interpretive Statements; SINUS RHYTHM; POSSIBLE LEFT VENTRICULAR HYPERTROPHY; SIMILAR 04/23/13; Electronically Signed On 10-29-2016 8:50:10 EST by Cheryl George; Radiology Order: CT Head Without Contrast Test: CT Head Without Contrast REASON FOR EXAMINATION: MD request repeat; CT of the brain without IV contrast:; ; Comparison is the study performed at 11 27 a earlier today. A repeat is; requested by the emergency room physician.; ; There is no hemorrhage. The cortical stripe is unremarkable. Ventricles are; normal size and midline. There is no edema, mass effect or midline shift. The; paranasal sinuses and mastoids are unremarkable.; ; Impression:; ; There is no hemorrhage, acute infarct or mass. Negative CT study of the brain.; No change from the prior study.; ; ; Signed by; Duarte Costello MD 10/28/2016 01:08 P; Outcome: 12:22 ER care complete, transfer ordered by Provider. pc 13:36 Discharge Assessment: Patient awake, alert and oriented x 3. No cognitive and/or pml functional deficits noted. Patient verbalized understanding of disposition instructions. patient administered narcotics - no. The following High Risk Discharge criteria are identified: Yes, Acute CVA. [facility] to accompanying personnel Manager Pharmacy Emre INK PRINTERReji Cox. Condition: stable. CT Study completed. Admission hand-off: Report called to [facility]. Property :Personal belongings accompany Pt. 13:40 Patient left the ED. pml Signatures: Dispatcher [employer] EDMS Dagoberto Alvarez MD MD pc Nai Pearce, Joint Yarner Unit lbd Db Thompson RN RN Ev Coreas, Reg Reg gb Cristal Sneed, Reg Reg lg Livia Esparza RN RN hs1 Esther Olson RN RN pml Merced Vela, SALES SERVICE ASSISTANT SALES SERVICE ASSISTANT rs6 Susan Lion DO DO jo4 Corrections: (The following items were deleted from the chart) 11:52 10:39 Home Meds: Lisinopril Oral once daily (Last Dose: 10/27/2016); pml pml 11:52 10:39 Home Meds: Lasix Oral once daily (Last Dose: 10/27/2016); pml pml 12:30 12:29 Alteplase- infusion dose (0.9mg/kg x 0.9 = 0.81mg/kg, max dose 81mg) 81 mg IV at hs1 1 mL/hr in right antecubital over 60 mins hs1 Chart Complete MTDD
--- NOTE | 2016-10-30 14:41 | EDDOCDS ---
Physician Documentation [facility] Name: Sara Alcantar Age: 36 yrs Sex: Female : 1980 Arrival Date: 10/28/2016 Time: 10:30 Bed 2 Private MD: Artemio Lock M.D. Disposition: 10/28 12:13 Critical Care:. pc Disposition: 10/28/16 12:22 Transfer ordered to [facility]. Diagnosis is Cerebral infarction, unspecified - ischemic. - Reason for transfer: Higher level of care. - Accepting physician is Dr. Ferrer. - Condition is Stable. - Problem is new. - Symptoms are unchanged. Historical: - Allergies: PENICILLINS (Rash); Morphine (Vomit); Betadine (Rash); - Home Meds: 1. omeprazole 40 mg Oral cpDR 1 cap once daily 2. Lasix 20 mg oral tab 1 tab as needed (Last dose: 10/27/2016) 3. triamterene-hydrochlorothiazid 37.5-25 mg Oral tab 1 tab once daily (Last dose: 10/27/2016) - PMHx: Hypertension; GERD; - PSHx: salivary gland removed from left; parotid gland removed; Tonsillectomy; Adenoidectomy; - Social history: Smoking status: Patient states was never smoker of tobacco. No barriers to communication noted, The patient speaks fluent Georgian, Speaks appropriately for age. - Family history: Not pertinent. - : The pt / caregiver states he / she is not on anticoagulants. Home medication list is obtained from the patient. - Exposure Risk Screening:: None identified. REGISTERED NURSE FLOAT POOL: 10:39 LMP 10/09/2015 pml Exam: 12:13 Neuro: oriented x 3, no motor deficits, no sensory deficits, normal gait, cranial pc nerves normal except for a facial droop noted on left, with forehead spared, decreased sensation on forehead, left cheek and left eye, NIH 2. Vital Signs: 10:39 BP 165 / 100; Pulse 74; Resp 20; Temp 99.1(TE); Pulse Ox 100% on R/A; Weight 127.46 kg pml / 281 lbs; Height 5 ft. 4 in. (162.56 cm); Pain 0/10; 11:45 BP 162 / 96 (auto/); pml 11:46 Pulse 75 MON; Pulse Ox 99% ; pml 12:00 BP 174 / 108 (auto/); pml 12:00 Pulse 71 MON; Pulse Ox 100% ; pml 12:42 BP 184 / 106 (auto/); pml 12:43 Pulse 63 MON; Pulse Ox 100% ; pml 12:45 BP 195 / 116 (auto/); pml 12:45 Pulse 64 MON; Pulse Ox 99% ; pml 12:59 BP 156 / 88 LA (man/lg); pml 12:59 Pulse 68 MON; Pulse Ox 99% ; pml 12:59 BP 147 / 73 (auto/); pml 13:01 BP 148 / 77 (auto/); pml 13:02 Pulse 64 MON; Pulse Ox 94% ; pml 13:16 BP 149 / 87 (auto/); pml 13:17 Pulse 64 MON; Pulse Ox 99% ; pml 13:36 BP 150 / 84; Pulse 62; Resp 18; Temp 98.8; Pulse Ox 100% ; Pain 0/10; pml 10:39 Body Mass Index 48.23 (127.46 kg, 162.56 cm) pml MDM: 11:13 CT Head Without Contrast Ordered. EDMS 11:14 CBC with Diff Ordered. EDMS 11:14 BMP Ordered. EDMS 11:20 Financial registration complete. lg 11:22 [facility] Payment Agreement was scanned into [employer] and attached to record. lg 11:40 BMP Reviewed. jo4 11:44 Consult [facility]: Telemedicine Stroke Attending ordered. pc 11:44 Supervisor Shuttle Fitting/Pulse Ox/q 15 min VS ordered. pc 11:44 IV Saline Lock ordered. pc 11:44 Neuro VS q 15 Minutes ordered. pc 11:44 Patient must be on CC stretcher and weighed via bed scale ordered. pc 11:44 Rhythm Strip to chart ordered. pc 11:44 Stroke assessment pack to bedside ordered. pc 11:44 Partial Thromboplastin Time Ordered. EDMS 11:44 Prothrombin Time Profile\E\INR Ordered. EDMS 11:44 Type & Screen Ordered. EDMS 11:44 Chest, 1 View Ordered. EDMS 11:45 ECG WITH READING ER PHYS+CARDIAG ordered. EDMS 11:49 Consult [facility]: Telemedicine Stroke Attending complete. pc 11:58 CT Head Without Contrast Reviewed. pc 12:05 RBC MORPH PROF NO CHARGE Ordered. EDMS 12:12 Partial Thromboplastin Time Reviewed. jo4 12:12 Alteplase- bolus dose (0.9mg/kg x 0.1 = 0.09mg/kg, max dose 9mg) 9 mg IVP bolus over 1 pc mins ordered. 12:12 Alteplase- infusion dose (0.9mg/kg x 0.9 = 0.81mg/kg, max dose 81mg) 81 mg IV at 1 pc mL/hr once over 60 mins; Do not filter. Flush line with 50mL NS after infusion complete. ordered. 12:12 Avoid arterial punctures or frequent veno-punctures ordered. pc 12:12 Supervisor Shuttle Fitting/BP q 15 minutes/Neurovitals Q 15 minutes for 2 hours after rTPA ordered.pc 12:12 DO NOT insert Goodman AFTER tPA started ordered. pc 12:12 IV Saline Lock, Place second line, 18G or larger, in A/C vein ordered. pc 12:12 If SBP < 185mm Hg and/or DBP < 100mm Hg, proceed to rTPA ordered. pc 12:12 No Heparin, LMW Heparin, Warfarin, other anticoagulants (Pradaxa, Xarelto, etc.) or pc Antiplatelt Agents, (ASA, clopidogrel) from start of t-PA infusion ordered. 12:12 Notify MD if SBP >185mm Hg or <90mm Hg after t-PA initiated ordered. pc 12:12 Vital Signs, Neuro checks q15min for 2 hrs after t-PA infusion, then q30 min x 6 hrs pc ordered. 12:13 Prothrombin Time Profile\E\INR Reviewed. jo4 12:13 Differential Diagnosis: CVA v Tang's; prior parotid surgeries. Plan: CT, d/w [facility]. The patient has been re-examined and re-evaluated. There is no appreciated change of the patient's symptoms at this time. Physician consultation: Dr. Ferrer regarding patient's condition, and via Telemedicine, he has decided that she requires thrombolytic therapy, she has consented and she will be transferred to [facility]. Disposition: The historical points, examination findings, and any diagnostic results supporting the provided diagnosis, were discussed with the patient or legal guardian. The decision to transfer to the patient to another facility was explained. 12:30 Alteplase- infusion dose (0.9mg/kg x 0.9 = 0.81mg/kg, max dose 81mg) 81 mg IV at 1 hs1 mL/hr once over 60 mins; Do not filter. Flush line with 50mL NS after infusion complete. ordered. 12:39 Test interpretation: EKG. pc 12:49 CT Head Without Contrast Ordered. EDMS 12:50 Labetalol (CVA) 10 mg IVP at bolus every 10 minutes; Hold if SBP <185mm Hg. Start pc infusion after boluses completed. x2 ordered. 12:51 CBC with Diff Reviewed. pc 12:51 Type & Screen Reviewed. pc 12:51 RBC MORPH PROF NO CHARGE Reviewed. pc 13:12 Test interpretation: X-RAY - interpreted by Radiologist and personally reviewed, 1 view pc chest normal, interpreted by Radiologist and personally reviewed, Head CT; normal, and 2nd CT, after patient complained of right leg and facial symptoms during alteplase infusion, was also negative. 13:33 Other: TELESTROKE CONSULT was scanned into [employer] and attached to record. rs6 13:34 ECG/EKG was scanned into [employer] and attached to record. rs6 13:37 Consents was scanned into [employer] and attached to record. rs6 15:25 T-Sheet-- Draft Copy was scanned into [employer] and attached to record. gb 15:26 Rhythm Strip was scanned into [employer] and attached to record. gb EC:39 Rate is 69 beats/min. Rhythm is regular, Normal Sinus Rhythm. IN interval is normal. pc QRS interval is normal. QT interval is normal. No Q waves. T waves are Normal. No ST changes noted. Clinical impression: Normal Sinus Rhythm and LAFB. Administered Medications: 12:29 Drug: Alteplase- bolus dose (0.9mg/kg x 0.1 = 0.09mg/kg, max dose 9mg) 9 mg [alteplase hs1 100 mg intravenous solution (9 mg)] Route: IVP; Infused Over: 1 mins; Site: right antecubital; 12:30 Drug: Alteplase- infusion dose (0.9mg/kg x 0.9 = 0.81mg/kg, max dose 81mg) 81 mg hs1 [alteplase 100 mg intravenous solution] {Note: 81ml/hr.} Route: IV; Rate: 1 mL/hr; Infused Over: 60 mins; Site: right antecubital; 13:37 Follow up: IV Status: Completed infusion; IV Intake: 81ml pml 13:37 Not Given (Other Intervention Used): Labetalol (CVA) 10 mg IVP at bolus every 10 pml minutes; Hold if SBP <185mm Hg. Start infusion after boluses completed. x2 Critical Care Time: 12:13 Critical care time: Bedside Care: 35 minutes, Consultation: 20 minutes, Family pc Intervention: 20 minutes. Total time: 75 minutes Signatures: Dispatcher [employer] EDDagoberto Hahn MD MD pc Ev Edouard, Reg Reg gb Cristal Sneed, Reg Reg lg Livia Esparza RN RN hs1 Esther OlsonRN RN pml Merced Vela, TANK BOTTOM ASSEMBLER TANK BOTTOM ASSEMBLER rs6 Susan Lion DO DO jo4 The chart was reviewed and I authenticate all verbal orders and agree with the evaluation and treatment provided.Corrections: (The following items were deleted from the chart) 11:49 11:44 Accucheck ordered. doris begumk 11:52 10:39 Home Meds: Lisinopril Oral once daily (Last Dose: 10/27/2016); pml pml 11:52 10:39 Home Meds: Lasix Oral once daily (Last Dose: 10/27/2016); pml pml Attachments: 11:22 [facility] Payment Agreement lg 13:34 ECG/EKG rs6 15:25 T-Sheet-- Draft Copy gb Chart Complete MTDD
--- NOTE | 2016-10-30 14:41 | EDDOCDS ---
Physician Documentation [facility] Name: Sara Alcantar Age: 36 yrs Sex: Female : 1980 Arrival Date: 10/28/2016 Time: 10:30 Bed 2 Private MD: Artemio Lock M.D. Disposition: 10/28 12:13 Critical Care:. pc Disposition: 10/28/16 12:22 Transfer ordered to [facility]. Diagnosis is Cerebral infarction, unspecified - ischemic. - Reason for transfer: Higher level of care. - Accepting physician is Dr. Ferrer. - Condition is Stable. - Problem is new. - Symptoms are unchanged. Historical: - Allergies: PENICILLINS (Rash); Morphine (Vomit); Betadine (Rash); - Home Meds: 1. omeprazole 40 mg Oral cpDR 1 cap once daily 2. Lasix 20 mg oral tab 1 tab as needed (Last dose: 10/27/2016) 3. triamterene-hydrochlorothiazid 37.5-25 mg Oral tab 1 tab once daily (Last dose: 10/27/2016) - PMHx: Hypertension; GERD; - PSHx: salivary gland removed from left; parotid gland removed; Tonsillectomy; Adenoidectomy; - Social history: Smoking status: Patient states was never smoker of tobacco. No barriers to communication noted, The patient speaks fluent Turkmen, Speaks appropriately for age. - Family history: Not pertinent. - : The pt / caregiver states he / she is not on anticoagulants. Home medication list is obtained from the patient. - Exposure Risk Screening:: None identified. RIVET STICKER: 10:39 LMP 10/09/2015 pml Exam: 12:13 Neuro: oriented x 3, no motor deficits, no sensory deficits, normal gait, cranial pc nerves normal except for a facial droop noted on left, with forehead spared, decreased sensation on forehead, left cheek and left eye, NIH 2. Vital Signs: 10:39 BP 165 / 100; Pulse 74; Resp 20; Temp 99.1(TE); Pulse Ox 100% on R/A; Weight 127.46 kg pml / 281 lbs; Height 5 ft. 4 in. (162.56 cm); Pain 0/10; 11:45 BP 162 / 96 (auto/); pml 11:46 Pulse 75 MON; Pulse Ox 99% ; pml 12:00 BP 174 / 108 (auto/); pml 12:00 Pulse 71 MON; Pulse Ox 100% ; pml 12:42 BP 184 / 106 (auto/); pml 12:43 Pulse 63 MON; Pulse Ox 100% ; pml 12:45 BP 195 / 116 (auto/); pml 12:45 Pulse 64 MON; Pulse Ox 99% ; pml 12:59 BP 156 / 88 LA (man/lg); pml 12:59 Pulse 68 MON; Pulse Ox 99% ; pml 12:59 BP 147 / 73 (auto/); pml 13:01 BP 148 / 77 (auto/); pml 13:02 Pulse 64 MON; Pulse Ox 94% ; pml 13:16 BP 149 / 87 (auto/); pml 13:17 Pulse 64 MON; Pulse Ox 99% ; pml 13:36 BP 150 / 84; Pulse 62; Resp 18; Temp 98.8; Pulse Ox 100% ; Pain 0/10; pml 10:39 Body Mass Index 48.23 (127.46 kg, 162.56 cm) pml MDM: 11:13 CT Head Without Contrast Ordered. EDMS 11:14 CBC with Diff Ordered. EDMS 11:14 BMP Ordered. EDMS 11:20 Financial registration complete. lg 11:22 [facility] Payment Agreement was scanned into [employer] and attached to record. lg 11:40 BMP Reviewed. jo4 11:44 Consult [facility]: Telemedicine Stroke Attending ordered. pc 11:44 Heavy Forger Helper/Pulse Ox/q 15 min VS ordered. pc 11:44 IV Saline Lock ordered. pc 11:44 Neuro VS q 15 Minutes ordered. pc 11:44 Patient must be on CC stretcher and weighed via bed scale ordered. pc 11:44 Rhythm Strip to chart ordered. pc 11:44 Stroke assessment pack to bedside ordered. pc 11:44 Partial Thromboplastin Time Ordered. EDMS 11:44 Prothrombin Time Profile\E\INR Ordered. EDMS 11:44 Type & Screen Ordered. EDMS 11:44 Chest, 1 View Ordered. EDMS 11:45 ECG WITH READING ER PHYS+CARDIAG ordered. EDMS 11:49 Consult [facility]: Telemedicine Stroke Attending complete. pc 11:58 CT Head Without Contrast Reviewed. pc 12:05 RBC MORPH PROF NO CHARGE Ordered. EDMS 12:12 Partial Thromboplastin Time Reviewed. jo4 12:12 Alteplase- bolus dose (0.9mg/kg x 0.1 = 0.09mg/kg, max dose 9mg) 9 mg IVP bolus over 1 pc mins ordered. 12:12 Alteplase- infusion dose (0.9mg/kg x 0.9 = 0.81mg/kg, max dose 81mg) 81 mg IV at 1 pc mL/hr once over 60 mins; Do not filter. Flush line with 50mL NS after infusion complete. ordered. 12:12 Avoid arterial punctures or frequent veno-punctures ordered. pc 12:12 Heavy Forger Helper/BP q 15 minutes/Neurovitals Q 15 minutes for 2 hours after rTPA ordered.pc 12:12 DO NOT insert Goodman AFTER tPA started ordered. pc 12:12 IV Saline Lock, Place second line, 18G or larger, in A/C vein ordered. pc 12:12 If SBP < 185mm Hg and/or DBP < 100mm Hg, proceed to rTPA ordered. pc 12:12 No Heparin, LMW Heparin, Warfarin, other anticoagulants (Pradaxa, Xarelto, etc.) or pc Antiplatelt Agents, (ASA, clopidogrel) from start of t-PA infusion ordered. 12:12 Notify MD if SBP >185mm Hg or <90mm Hg after t-PA initiated ordered. pc 12:12 Vital Signs, Neuro checks q15min for 2 hrs after t-PA infusion, then q30 min x 6 hrs pc ordered. 12:13 Prothrombin Time Profile\E\INR Reviewed. jo4 12:13 Differential Diagnosis: CVA v Tang's; prior parotid surgeries. Plan: CT, d/w [facility]. The patient has been re-examined and re-evaluated. There is no appreciated change of the patient's symptoms at this time. Physician consultation: Dr. Ferrer regarding patient's condition, and via Telemedicine, he has decided that she requires thrombolytic therapy, she has consented and she will be transferred to [facility]. Disposition: The historical points, examination findings, and any diagnostic results supporting the provided diagnosis, were discussed with the patient or legal guardian. The decision to transfer to the patient to another facility was explained. 12:30 Alteplase- infusion dose (0.9mg/kg x 0.9 = 0.81mg/kg, max dose 81mg) 81 mg IV at 1 hs1 mL/hr once over 60 mins; Do not filter. Flush line with 50mL NS after infusion complete. ordered. 12:39 Test interpretation: EKG. pc 12:49 CT Head Without Contrast Ordered. EDMS 12:50 Labetalol (CVA) 10 mg IVP at bolus every 10 minutes; Hold if SBP <185mm Hg. Start pc infusion after boluses completed. x2 ordered. 12:51 CBC with Diff Reviewed. pc 12:51 Type & Screen Reviewed. pc 12:51 RBC MORPH PROF NO CHARGE Reviewed. pc 13:12 Test interpretation: X-RAY - interpreted by Radiologist and personally reviewed, 1 view pc chest normal, interpreted by Radiologist and personally reviewed, Head CT; normal, and 2nd CT, after patient complained of right leg and facial symptoms during alteplase infusion, was also negative. 13:33 Other: TELESTROKE CONSULT was scanned into [employer] and attached to record. rs6 13:34 ECG/EKG was scanned into [employer] and attached to record. rs6 13:37 Consents was scanned into [employer] and attached to record. rs6 15:25 T-Sheet-- Draft Copy was scanned into [employer] and attached to record. gb 15:26 Rhythm Strip was scanned into [employer] and attached to record. gb EC:39 Rate is 69 beats/min. Rhythm is regular, Normal Sinus Rhythm. HI interval is normal. pc QRS interval is normal. QT interval is normal. No Q waves. T waves are Normal. No ST changes noted. Clinical impression: Normal Sinus Rhythm and LAFB. Administered Medications: 12:29 Drug: Alteplase- bolus dose (0.9mg/kg x 0.1 = 0.09mg/kg, max dose 9mg) 9 mg [alteplase hs1 100 mg intravenous solution (9 mg)] Route: IVP; Infused Over: 1 mins; Site: right antecubital; 12:30 Drug: Alteplase- infusion dose (0.9mg/kg x 0.9 = 0.81mg/kg, max dose 81mg) 81 mg hs1 [alteplase 100 mg intravenous solution] {Note: 81ml/hr.} Route: IV; Rate: 1 mL/hr; Infused Over: 60 mins; Site: right antecubital; 13:37 Follow up: IV Status: Completed infusion; IV Intake: 81ml pml 13:37 Not Given (Other Intervention Used): Labetalol (CVA) 10 mg IVP at bolus every 10 pml minutes; Hold if SBP <185mm Hg. Start infusion after boluses completed. x2 Critical Care Time: 12:13 Critical care time: Bedside Care: 35 minutes, Consultation: 20 minutes, Family pc Intervention: 20 minutes. Total time: 75 minutes Signatures: Dispatcher [employer] EDDagoberto Hahn MD MD pc Ev Edouard, Reg Reg gb Cristal Sneed, Reg Reg lg Livia Esparza RN RN hs1 Esther OlsonRN RN pml Merced Vela, MANAGER SECURITY MANAGER SECURITY rs6 Susan Lion DO DO jo4 The chart was reviewed and I authenticate all verbal orders and agree with the evaluation and treatment provided.Corrections: (The following items were deleted from the chart) 11:49 11:44 Accucheck ordered. doris begumk 11:52 10:39 Home Meds: Lisinopril Oral once daily (Last Dose: 10/27/2016); pml pml 11:52 10:39 Home Meds: Lasix Oral once daily (Last Dose: 10/27/2016); pml pml Attachments: 11:22 [facility] Payment Agreement lg 13:34 ECG/EKG rs6 15:25 T-Sheet-- Draft Copy gb Chart Complete MTDD
== END 2016-10-28 13:40 | disposition short-term general hospital (02) ==
LOC: M ED 10:30
DX: I63.9 Cerebral infarction, unspecified (principal); I10 Essential (primary) hypertension; K21.9 Gastro-esophageal reflux disease without esophagitis; Z79.899 Other long term (current) drug therapy; Z88.0 Allergy status to penicillin; Z88.5 Allergy status to narcotic agent; Z88.8 Allergy status to other drugs, medicaments and biological substances
CPT/HCPCS: 36415; 70450; 71010; 80048; 85025; 85610; 85730; 86850; 86900; 86901; 93005; 93041; 96365; 96375; 99285; J2997

== ENCOUNTER 2016-11-29 15:34 | Emergency (ER) | payer OTHER ==
[~2016-11-29] VITALS: Ht 162.6 cm; Wt 126.6 kg
--- NOTE | 2016-11-29 16:05 | REP ---
Head CT without contrast: History: CVA. The Comparison study: October 28, 2016 CT findings: Bone window settings demonstrate an intact bony calvarium. There is no evidence of skull fracture or incidental bony calvarial lesion. The visualized paranasal sinuses appear clear. No intraorbital abnormality is seen. On soft tissue window setting images; the lateral, third, and fourth ventricles are normal in size and position. Siddiqi-white differentiation pattern is normal above and below the tentorium. There are is no evidence of intracranial hemorrhage. No mass, edema, infarction, or midline shift is seen. No extra-axial fluid collection is appreciated. Impression: Negative noncontrast head CT. Signed by Matthew Cooper MD 11/29/2016 03:56 P
--- NOTE | 2016-11-29 16:09 | REP ---
Portable chest: Single view. History: CVA. Comparison study: October 28, 2016. Findings: The lungs are well inflated and clear. The pleural angles are sharp. Heart size is normal. EKG electrodes are seen. Pulmonary vasculature is not increased. No bony abnormality is seen per Impression: No active disease. Signed by Matthew Cooper MD 11/29/2016 04:01 P
[2016-11-29] MEDS ORDERED: ATOR1TAB18 (16:15)
[2016-11-29] MEDS ORDERED: FURO20TA2 (16:15)
[2016-11-29] MEDS ORDERED: ASPI81CH (16:15)
[2016-11-29] MEDS ORDERED: TRIA37.53 PO (16:15)
[2016-11-29] MEDS ORDERED: OMEP40CA2 (16:15)
[2016-11-29] MEDS ORDERED: DOXY1TAB (16:15)
[2016-11-29 17:00] LABS: BASO % 0.4 % (0.0-1.0); EOS # 0.3 K/mm3 (0.0-0.50); EOS % 2.9 % (0.0-3.0); INR 0.97; LARGE UNSTAINED CELL # 0.1 K/mm3 (0.0-0.4); LARGE UNSTAINED CELL % 1.4 % (0.0-4.0); LYMPH # 2.2 K/mm3 (1.5-4.5); LYMPH % 23.4 % (24.0-44.0); MEAN CORPUSCULAR HEMOGLOBIN 22.4 pg (27.0-33.0); MEAN CORPUSCULAR HGB CONC 31.1 g/dl (32.0-36.5); MEAN CORPUSCULAR VOLUME 72.1 fl (80.0-96.0); MONO # 0.4 K/mm3 (0.0-0.8); MONO % 4.6 % (0.0-5.0); NEUTROPHILS % 67.3 % (36.0-66.0); PLATELET COUNT, AUTOMATED 299 k/mm3 (150-450); RED CELL DISTRIBUTION WIDTH 17.4 % (11.5-14.5)
[2016-11-29 17:17] LABS: ANION GAP 9 MEQ/L (8-16); BLOOD UREA NITROGEN 17 MG/DL (7-18); CALCIUM LEVEL 8.6 MG/DL (8.5-10.1); CARBON DIOXIDE LEVEL 28 MEQ/L (21-32); CHLORIDE LEVEL 104 MEQ/L (98-107); CREATININE FOR GFR 0.92 MG/DL (0.55-1.02); GLOMERULAR FILTRATION RATE > 60.0 (>60); GLUCOSE, FASTING 99 MG/DL (70-105); POTASSIUM SERUM 3.1 MEQ/L (3.5-5.1); SODIUM LEVEL 141 MEQ/L (136-145)
[2016-11-29 17:34] VITALS: BP 150/85
--- NOTE | 2016-11-30 11:04 | ECGEPIP ---
Stationary ECG Study [facility] - ED Test Date: 2016-11-29 Pat Name: QUEENIE MARIA Department: Room: - Gender: F Mechanical Insulator: ROSALBA : 1980 Requested By: Cheryl George Order Number: [id number] Reading MD: Cheryl George Measurements Intervals [place] Rate: 92 P: 35 [place]: 167 QRS: -6 QRSD: 98 T: 8 QT: 400 QTc: 495 Interpretive Statements SINUS RHYTHM VOLTAGE CRITERIA FOR LVH INCREASED RATE 10/28/16 Electronically Signed On 11-30-2016 11:04:26 EST by Cheryl George
== END 2016-11-29 18:15 | disposition short-term general hospital (02) ==
LOC: M ED 18:02
DX: I63.9 Cerebral infarction, unspecified (principal)

== ENCOUNTER → 2016-12-27 | Outpatient (REF) | payer OTHER ==
[~2016-12-27] MED LIST: ASPI81CH; ATOR1TAB18; DOXY1TAB; FURO20TA2; OMEP40CA2; TRIA37.53 PO; VERA40TA PO
== END ==
LOC: M LAB REF 16:47
PROVIDERS: ATTEND Nurse Practitioner Adult Health
DX: G45.9 Transient cerebral ischemic attack, unspecified (principal)

== ENCOUNTER → 2016-12-28 | Outpatient (CLI) | payer OTHER ==
[~2016-12-28] MED LIST changes: +MIDAZOLAM INJ 2 MG/2 ML VIAL (J2250) As Ordered ONE
[2016-12-28 15:25] VITALS: BP 145/89
--- NOTE | 2016-12-28 15:43 | T-ECHO ---
DATE OF PROCEDURE: 12/28/2016 PREPROCEDURE DIAGNOSIS: Transient cerebral ischemia, unspecified. POSTPROCEDURE DIAGNOSIS: Very mild aortic valve sclerosis with very mild aortic regurgitation. No patent foramen ovale. INDICATION: Transient cerebral ischemia, unspecified. FINDINGS: Very mild aortic valve sclerosis with very mild aortic regurgitation. No patent foramen ovale. PROCEDURE PERFORMED: Transesophageal echocardiogram with saline contrast times six. PROCEDURE PERFORMED BY: Nadir Malin MD GAS LINE REPAIRER: None. LIGHT CONSCIOUS SEDATION: Midazolam 5 mg intravenous (IV). COMPLICATIONS: None. PROCEDURE DESCRIPTION: Rhythm was sinus. Patient received viscous lidocaine to gargle. She received a total of 5 mg midazolam IV for the procedure. The patient tolerated the procedure well without any immediate complications. Esophageal intubation was performed without difficulty using a Hector two-dimensional multiplane phased array transesophageal echocardiogram probe. The left and right ventricles appeared normal in size and systolic function. No mass or thrombi were seen within the atria or their appendages. Left atrial appendage appeared normal. Pulmonary vein inflow connections to the left atria were normal. Pulmonary vein inflow in the left upper pulmonary vein was normal by pulse wave Doppler. Intra-atrial septum was at least a little bit suspicious for presence of a patent foramen ovale; however, no patent foramen ovale could be demonstrated by color flow Doppler. A total of saline contrast IV times six with Valsalva maneuver release was performed and did not demonstrate any shunting of contrast bubbles across the atrial septum or shunting at any level from the right side to the left side of the heart. Aortic valve was three-cusp and showed very mild focal thickening. Very mild aortic regurgitation was present centrally. Pulmonic valve was difficult to visualize but appeared unremarkable. Tricuspid valve appeared structurally normal. Mild-moderate tricuspid regurgitation was present by color flow Doppler. Mitral valve appeared structurally normal. No mitral valve prolapse. Very mild mitral regurgitation was present. No pericardial effusion. Distal aortic arch and descending thoracic aorta appeared normal. CONCLUSIONS: 1. Very mild aortic valve sclerosis with very mild aortic regurgitation. 2. Otherwise, normal transesophageal echocardiogram (AMIRA). Normal left ventricle wall motion and left ventricular (LV) systolic function. 3. Unable to demonstrate presence of any patent foramen ovale with saline contrast intravenous (IV) times six with Valsalva maneuver release.
== END | disposition home or self-care (01) ==
LOC: M OPP 13:12
PROVIDERS: ATTEND Internal Medicine Cardiovascular Disease
DX: I35.1 Nonrheumatic aortic (valve) insufficiency (principal); G45.9 Transient cerebral ischemic attack, unspecified
CPT/HCPCS: J2250 ×3

== ENCOUNTER → 2017-03-21 | Outpatient (REF) | payer OTHER ==
[~2017-03-21] MED LIST changes: -MIDAZOLAM INJ 2 MG/2 ML VIAL (J2250) As Ordered ONE
== END ==
LOC: M LAB REF 16:44
PROVIDERS: ATTEND Nurse Practitioner Adult Health
DX: D64.9 Anemia, unspecified (principal)

== ENCOUNTER 2018-01-24 18:56 | Emergency (ER) | payer OTHER ==
[2018-01-24] MEDS: KETOROLAC TROMETHAMINE 10 MG TAB PO (22:11)
== END 2018-01-24 22:18 | disposition home or self-care (01) ==
LOC: M ED 18:56
DX: M25.562 Pain in left knee (principal); D56.9 Thalassemia, unspecified; I10 Essential (primary) hypertension; Z86.73 Personal history of transient ischemic attack (TIA), and cerebral infarction without residual deficits; E28.2 Polycystic ovarian syndrome; Z88.0 Allergy status to penicillin; Z88.5 Allergy status to narcotic agent; Z79.899 Other long term (current) drug therapy; Z79.82 Long term (current) use of aspirin
CPT/HCPCS: 73564

== ENCOUNTER 2018-05-02 10:45 | Outpatient (CLI) | payer OTHER ==
[2018-05-02] MEDS: IRON SUCROSE 25 MG in NS 50 ML IV (12:07)
[2018-05-02] MEDS: ACETAMINOPHEN TAB 650MG DOSE (2X325MG) PO (12:51)
[2018-05-02] MEDS: diphenhydrAMINE 50 MG CAP PO (12:51)
[2018-05-02] MEDS: IRON SUCROSE 475 MG in NS 250 ML IV (14:07)
[2018-05-02] MEDS: ONDANSETRON 4 MG TAB (S0181) PO (17:24)
== END 2018-05-02 18:00 | disposition home or self-care (01) ==
LOC: M INFU 18:00
DX: D64.9 Anemia, unspecified (principal); Z85.818 Personal history of malignant neoplasm of other sites of lip, oral cavity, and pharynx; Z79.82 Long term (current) use of aspirin; Z79.899 Other long term (current) drug therapy
CPT/HCPCS: J1756

== ENCOUNTER 2018-05-10 13:27 | Outpatient (CLI) | payer OTHER ==
[2018-05-10] MEDS ORDERED: ONDANSETRON 4 MG TAB (S0181) As Ordered (13:54)
[2018-05-10] MEDS: ACETAMINOPHEN TAB 650MG DOSE (2X325MG) PO (13:56)
[2018-05-10] MEDS: diphenhydrAMINE 25 MG CAP PO (13:56)
[2018-05-10] MEDS: IRON SUCROSE 200 MG in NS 250 ML IV (13:58)
[2018-05-10] MEDS ORDERED: ONDANSETRON 4 MG TAB (S0181) PO (14:00)
== END 2018-05-10 17:10 | disposition home or self-care (01) ==
LOC: M INFU 13:27
DX: D50.9 Iron deficiency anemia, unspecified (principal); Z85.818 Personal history of malignant neoplasm of other sites of lip, oral cavity, and pharynx; Z79.899 Other long term (current) drug therapy; Z79.82 Long term (current) use of aspirin; Z88.3 Allergy status to other anti-infective agents; Z88.5 Allergy status to narcotic agent; Z88.0 Allergy status to penicillin
CPT/HCPCS: J1756

== ENCOUNTER 2018-05-16 07:58 | Outpatient (CLI) | payer OTHER ==
[2018-05-16] MEDS: ACETAMINOPHEN TAB 650MG DOSE (2X325MG) PO (08:19)
[2018-05-16] MEDS: diphenhydrAMINE 25 MG CAP PO (08:19)
[2018-05-16] MEDS: ONDANSETRON 4 MG TAB (S0181) PO (08:19)
[2018-05-16] MEDS: IRON SUCROSE 200 MG in NS 250 ML IV (08:33)
== END 2018-05-16 12:05 | disposition home or self-care (01) ==
LOC: M INFU 07:58
DX: D50.9 Iron deficiency anemia, unspecified (principal); Z79.82 Long term (current) use of aspirin; Z79.899 Other long term (current) drug therapy; Z88.0 Allergy status to penicillin; Z88.5 Allergy status to narcotic agent
CPT/HCPCS: J1756

== ENCOUNTER → 2018-05-23 | Outpatient (REF) | payer OTHER ==
[2018-05-24 14:18] LABS: INSULIN LEVEL 21.8 uIU/mL (2.6-24.9)
== END ==
LOC: M LABNEURO 13:05
DX: E66.9 Obesity, unspecified (principal)

== ENCOUNTER → 2018-05-30 | Outpatient (CLI) | payer OTHER ==
[2018-05-30 14:35] LABS: CSF TUBE# GLU TUBE 3; CSF TUBE# TP TUBE 3; GLUCOSE CSF 59 MG/DL (40-75)
[2018-05-30 14:47] LABS: CSF RBC < 2 10^3/uL (<2)
[2018-05-30 14:48] LABS: APPEARANCE, CSF CLEAR (CLEAR); COLOR, CSF COLORLESS (COLORLESS); CSF DIFF IF INDICATED? NO (NO); CSF TUBE# CELL CNT TUBE 1; CSF WBC 1 /uL (0-10)
[2018-06-05 00:08] LABS: IMMUNOGLOBULIN G CSF 1.9 mg/dL (0.0-8.6)
== END ==
LOC: M RADPRO 12:59
DX: G93.2 Benign intracranial hypertension (principal)
CPT/HCPCS: 62272

== ENCOUNTER → 2018-06-08 | Outpatient (REF) | payer OTHER ==
[2018-06-08 15:36] LABS: IRON (FE) 33 UG/DL (50-170)
[2018-06-08 15:36] LABS: FERRITIN 32 NG/ML (8-252)
== END ==
LOC: M LAB REF 14:56
DX: D50.9 Iron deficiency anemia, unspecified (principal)

== ENCOUNTER → 2018-07-24 | Outpatient (REF) | payer MEDICAID ==
[2018-07-24 17:55] LABS: BASO % 0.5 % (0.0-1.0); EOS # 0.2 10^3/uL (0.0-0.50); EOS % 2.2 % (0.0-3.0); HEMATOCRIT 39.3 % (36.0-47.0); HEMOGLOBIN 12.1 g/dl (12.0-15.5); IMMATURE GRANULOCYTE % 0.2 % (0-3.0); LYMPH % 23.9 % (24.0-44.0); MEAN CORPUSCULAR HEMOGLOBIN 23.2 pg (27.0-33.0); MEAN CORPUSCULAR HGB CONC 30.8 g/dl (32.0-36.5); MEAN CORPUSCULAR VOLUME 75.4 fl (80.0-96.0); MONO # 0.4 10^3/uL (0.0-0.8); MONO % 4.5 % (0.0-5.0); NEUTROPHILS # 5.9 10^3/uL (1.8-7.7); NEUTROPHILS % 68.7 % (36.0-66.0); PLATELET COUNT, AUTOMATED 371 10^3/uL (150-450); RED BLOOD COUNT 5.21 10^6/uL (4.00-5.40); RED CELL DISTRIBUTION WIDTH 20.2 % (11.5-14.5); WHITE BLOOD COUNT 8.5 10^3/uL (4.0-10.0)
[2018-07-24 18:05] LABS: ALBUMIN 3.6 GM/DL (3.2-5.2); ALBUMIN/GLOBULIN RATIO 1.03 (1.00-1.93); ALKALINE PHOSPHATASE 111 U/L (45-117); ALT/SGPT 44 U/L (12-78); ANION GAP 10 MEQ/L (8-16); AST/SGOT 20 U/L (7-37); BILIRUBIN,TOTAL 0.3 MG/DL (0.2-1.0); BLOOD UREA NITROGEN 13 MG/DL (7-18); CALCIUM LEVEL 8.1 MG/DL (8.5-10.1); CARBON DIOXIDE LEVEL 21 MEQ/L (21-32); CHLORIDE LEVEL 111 MEQ/L (98-107); CREATININE FOR GFR 0.89 MG/DL (0.55-1.30); GLOMERULAR FILTRATION RATE > 60.0 (>60); GLUCOSE, FASTING 103 MG/DL (70-100); POTASSIUM SERUM 4.2 MEQ/L (3.5-5.1); SODIUM LEVEL 142 MEQ/L (136-145); TOTAL PROTEIN 7.1 GM/DL (6.4-8.2)
== END ==
LOC: M LABNEURO 13:15
DX: G43.909 Migraine, unspecified, not intractable, without status migrainosus (principal)
CPT/HCPCS: 80053

== ENCOUNTER → 2018-07-30 | Outpatient (REF) | payer OTHER | LOC: M LAB REF 12:02 | DX: J02.9 Acute pharyngitis, unspecified (principal) ==

== ENCOUNTER → 2018-09-03 | Outpatient (CLI) | payer OTHER | LOC: M RAD 07:51 | DX: N20.0 Calculus of kidney (principal); K76.0 Fatty (change of) liver, not elsewhere classified; R16.1 Splenomegaly, not elsewhere classified | CPT/HCPCS: 74176 ==

== ENCOUNTER → 2018-10-05 | Outpatient (CLI) | payer OTHER ==
[~2018-10-05] MED LIST changes: +ASPI81CH PO; -ATOR1TAB18; +ATOR80TA59; +ATOR80TA59 PO; +DOXY-259; -DOXY1TAB; +FAMC500T10; +KETO10TAB PO; +NORT25CA2 PO; +OMEP40CA2 PO; +TORS20TA2 PO
--- NOTE | 2018-10-05 09:51 | REP ---
CT NECK WITHOUT CONTRAST: HISTORY: Neck mass. The patient is status post left parotidectomy. The naso-, naomi- and hypopharynx, larynx and subglottic trachea are normal in appearance. The right parotid , submandibular and thyroid glands are normal in size and density. Small lymph nodes less than 1 cm in size are present in the internal jugular chains, posterior triangles, submandibular and submental areas. The lung apices are clear. The visualized sinuses are clear. IMPRESSION: Patient is status post left parotidectomy. Electronically Signed by Darek Berumen MD 10/05/2018 09:56 A
== END ==
LOC: M RAD 09:03
PROVIDERS: ATTEND Otolaryngology
DX: R22.1 Localized swelling, mass and lump, neck (principal)

== ENCOUNTER 2018-12-03 13:19 | Emergency (ER) | payer OTHER ==
[~2018-12-03] VITALS: Ht 162.6 cm; Wt 133.2 kg
[2018-12-03 15:25] LABS: BASO % 0.1 % (0.0-1.0); EOS # 0.1 10^3/uL (0.0-0.50); EOS % 2.1 % (0.0-3.0); HEMATOCRIT 41.7 % (36.0-47.0); HEMOGLOBIN 12.5 g/dl (12.0-15.5); LYMPH # 0.8 10^3/uL (1.5-4.5); LYMPH % 11.6 % (24.0-44.0); MEAN CORPUSCULAR HEMOGLOBIN 22.7 pg (27.0-33.0); MEAN CORPUSCULAR VOLUME 75.8 fl (80.0-96.0); MONO # 0.2 10^3/uL (0.0-0.8); MONO % 2.8 % (0.0-5.0); NEUTROPHILS # 5.6 10^3/uL (1.8-7.7); NEUTROPHILS % 83.1 % (36.0-66.0); PLATELET COUNT, AUTOMATED 310 10^3/uL (150-450); WHITE BLOOD COUNT 6.7 10^3/uL (4.0-10.0)
[2018-12-03 15:42] LABS: HCG, SERUM QUALITATIVE NEGATIVE (NEGATIVE)
[2018-12-03] MEDS ORDERED: KETOROLAC 30 MG/ML VIAL (J1885) IV ONE (15:45)
[2018-12-03] MEDS ORDERED: ONDANSETRON 4MG/2ML VIAL (J2405) IV ONE (15:45)
[2018-12-03] MEDS ORDERED: NS 1,000 ML IV ONE (15:45)
[2018-12-03 15:49] LABS: ALBUMIN 3.8 GM/DL (3.2-5.2); ALT/SGPT 26 U/L (12-78); AMYLASE 21 U/L (25-115); BILIRUBIN,DIRECT 0.1 MG/DL (0.0-0.2); BILIRUBIN,TOTAL 0.5 MG/DL (0.2-1.0); BLOOD UREA NITROGEN 13 MG/DL (7-18); CALCIUM LEVEL 8.1 MG/DL (8.5-10.1); CARBON DIOXIDE LEVEL 22 MEQ/L (21-32); CHLORIDE LEVEL 108 MEQ/L (98-107); CREATININE FOR GFR 0.84 MG/DL (0.55-1.30); GLOMERULAR FILTRATION RATE > 60.0 (>60); GLUCOSE, FASTING 76 MG/DL (70-100); LIPASE 79 U/L (73-393); POTASSIUM SERUM 4.1 MEQ/L (3.5-5.1); SODIUM LEVEL 140 MEQ/L (136-145); TOTAL PROTEIN 7.6 GM/DL (6.4-8.2)
--- NOTE | 2018-12-03 17:07 | REP ---
CT ABDOMEN PELVIS WITHOUT IV CONTRAST: 12/03/2018. Clinical history: Right lower quadrant pain, rule out appendicitis. Previous history of severe contrast reaction. Comparison: 09/03/2018. Findings: Noncontrast technique with coronal and sagittal reconstructions provided. Lung bases remain clear. Heart not grossly enlarged. There is no pericardial thickening or effusion. Mild diffuse fatty infiltration of the liver with hepatomegaly with about a 20 cm vertical diameter of the liver. Spleen is mildly enlarged as well. At the 14.6 cm in length. No focal hepatic mass or biliary dilatation. No splenic lesion. Gallbladder shows no calcified stone or mass. There is no ascites in the upper abdomen. Pancreas shows no mass, ductal dilatation or adjacent inflammatory change. Adrenal glands normal. Kidneys show a few pyramidal calcifications on the left more than right without stones in the collecting system and no hydronephrosis, hydroureter or ureteral stone. Small bowel loops not dilated. There is no inflammatory change in the mesentery. The aorta is without aneurysm and no periaortic retroperitoneal/mesenteric lymphadenopathy. The abdominal portion of colon is without signs of colitis or diverticulitis, stricture or mass. CT pelvis: Distal small bowel loops grossly unremarkable. Appendix is seen as a mild inflammatory change or stone. Extends medially from the cecal tip beginning on image 99 through 102. No ventral or inguinal hernia nor inguinal adenopathy. Bone windows show lumbar and thoracic vertebral levels and the posterior elements, visualized ribs, sacrum, SI joints, pelvis and hips grossly intact. There is no pelvic mass or free fluid nor adenopathy. Bladder partially filled without mass, wall thickening or stone. Distal left colon, sigmoid and rectum intact. Impression: 1. There is no CT evidence for acute appendicitis. No dilatation, periappendiceal inflammatory change or fluid collection, perforation, abscess, appendicolith or other acute finding. 2. Small bowel loops and colon grossly intact. Solid organs in the upper abdomen unremarkable except for some fatty infiltration of the liver and mild hepatosplenomegaly. No discrete lesion. 3. There are tiny pyramidal calcifications in the 1 mm range bilaterally without stones in the collecting systems of either kidney, ureters or in the bladder. No other finding. Electronically Signed by Lexa Beard MD 12/03/2018 08:04 P
[2018-12-03] MEDS ORDERED: diphenhydrAMINE INJ 50MG/ML VIAL (J1200) IV ONE (17:30)
[2018-12-03] MEDS ORDERED: MORPHINE 2 MG/ML 1ML SYRINGE (J2270) IV ONE (17:30)
--- NOTE | 2018-12-03 19:04 | REPVR ---
EXAM: US Pelvis Complete, Transabdominal and US Pelvis, Transvaginal EXAM DATE/TIME: 12/03/2018 6:02 PM CLINICAL HISTORY: 38 years old, female; Pain; Pelvic pain; Additional info: Rlq pain; R/O torsion TECHNIQUE: Real-time transabdominal and transvaginal pelvic ultrasound (complete) with image documentation. Transvaginal imaging was used for better evaluation of the endometrium and adnexa. COMPARISON: CT ABD PELVIS W/O CONTRAST 12/03/2018 4:10 PM FINDINGS: Uterus/cervix: The endometrium is 28 mm on the transvaginal study the, which is abnormal. The uterus is normal in size and shape. Is anteverted. It is 10.4 x 5.8 x 7.5 cm on the transvaginal study. A subserosal fundal fibroid is 3.1 x 2.1 x 2.0 cm (images 65 and 69). Within the expanded endometrial cavity, a 1.8 x 1.4 x 1.2 cm mass is either a subendometrial fibroid or endometrial polyp. It has a heterogeneous echotexture and some blood flow on color Doppler (image 79). Right adnexa: The right ovary is normal in size and architecture. It is 2.3 x 2.0 x 2.5 cm on the transvaginal study. Resistive index is 0.51. There is no ovarian mass or cyst. Normal blood flow is documented. There is no ovarian torsion. Left adnexa: The left ovary is normal in size and architecture. It is 3.3 x 2.4 x 1.3 cm on the transvaginal study. Resistive index is 0.52. There is no ovarian mass. The dominant follicle is 1.6 cm and anechoic. Normal blood flow is documented. There is no ovarian torsion. Free fluid: There is no free fluid. Bladder: Unremarkable. IMPRESSION: 1. The endometrium is abnormally thickened, 28 mm. Within the expanded endometrial cavity, a 1.8 x 1.4 x 1.2 cm mass is either a subendometrial fibroid or endometrial polyp. It has a heterogeneous echotexture and some blood flow on color Doppler (image 79). 2. A subserosal fundal fibroid is 3.1 x 2.1 x 2.0 cm. 4. The ovaries are normal. Electronically signed by: Max Jacob On 12/03/2018 19:04:30 PM
[2018-12-03] MEDS ORDERED: REGL10TA6 PO (19:41)
[2018-12-03] MEDS ORDERED: NORCOTAB PO (19:41)
[2018-12-03] MEDS ORDERED: DICY20TA PO (19:41)
[2018-12-03 19:49] VITALS: BP 155/87
--- NOTE | 2018-12-05 15:54 | ED PDOC ---
Post-Departure Follow-Up [facility] [place] faxed formal report of pelvic us for fu Rolando Galvan MD Dec 05, 2018 15:54
== END 2018-12-03 19:55 | disposition home or self-care (01) ==
LOC: M ED 13:19
DX: K52.9 Noninfective gastroenteritis and colitis, unspecified (principal); I10 Essential (primary) hypertension; E78.5 Hyperlipidemia, unspecified; K21.9 Gastro-esophageal reflux disease without esophagitis; E28.2 Polycystic ovarian syndrome; Z87.42 Personal history of other diseases of the female genital tract; Z88.1 Allergy status to other antibiotic agents; Z91.041 Radiographic dye allergy status; Z88.8 Allergy status to other drugs, medicaments and biological substances; Z88.0 Allergy status to penicillin
CPT/HCPCS: 74176; 76830; 76856; 80048; 80076; 81001; 82150; 83690; 84703; 85025; 93976; 96374; 96375; 99283; J1200; J1885; J2270; J2405

== ENCOUNTER → 2018-12-06 | Outpatient (REF) | payer OTHER ==
[~2018-12-06] MED LIST changes: +DICY20TA PO; +NORCOTAB PO; +REGL10TA6 PO
== END ==
LOC: M LAB REF 19:09
PROVIDERS: ATTEND Emergency Medicine
DX: Z11.0 Encounter for screening for intestinal infectious diseases (principal)

== ENCOUNTER → 2019-02-10 | Outpatient (REF) | payer OTHER ==
[~2019-02-10] MED LIST changes: -ASPI81CH; -ASPI81CH PO; +ASPI81CH49; +ASPI81CH49 PO; +HYDR-3715 PO; -NORCOTAB PO
== END ==
LOC: M LAB REF 14:13
PROVIDERS: ATTEND Nurse Practitioner Family
DX: R19.7 Diarrhea, unspecified (principal)

== ENCOUNTER → 2019-04-03 | Outpatient (REF) | payer OTHER | LOC: M LAB REF 12:41 | PROVIDERS: ATTEND Nurse Practitioner Adult Health | DX: R73.09 Other abnormal glucose (principal) ==

== ENCOUNTER → 2019-04-11 | Outpatient (REF) | payer OTHER | LOC: M LAB REF 16:48 | PROVIDERS: ATTEND Nurse Practitioner Adult Health | DX: D50.9 Iron deficiency anemia, unspecified (principal) ==

== ENCOUNTER 2019-06-03 11:59 | Emergency (ER) | payer OTHER ==
[~2019-06-03] VITALS: Ht 162.6 cm; Wt 136.9 kg
[~2019-06-03 11:59] MED LIST changes: -FAMC500T10; +FAMC500T10 PO
--- NOTE | 2019-06-03 12:39 | REP ---
CT of the head without contrast Indication: Headache, history of increased ICP. Comparison: CT head of 08/01/2017. Technique: Axial CT of the head was performed without contrast. Findings: There is no visible soft tissue swelling or calvarial fracture. There is no evidence of acute intracranial hemorrhage or extra-axial fluid collection. Siddiqi-white matter differentiation is maintained. There is no mass effect or midline shift. The basal cisterns are patent. There is no hydrocephalus. The visualized paranasal sinuses and mastoid air cells are clear. Impression: No acute intracranial abnormality. Electronically Signed by Hazel Drake MD 06/03/2019 12:30 P
[2019-06-03] MEDS ORDERED: AIMO70IN SC (12:53)
[2019-06-03] MEDS ORDERED: METF-791 PO (12:53)
[2019-06-03 14:38] LABS: BASO % 0.4 % (0.0-1.0); EOS # 0.2 10^3/uL (0.0-0.5); EOS % 2.4 % (0.0-3.0); HEMATOCRIT 33.3 % (36.0-47.0); HEMOGLOBIN 9.7 g/dl (12.0-15.5); LYMPH # 1.9 10^3/uL (1.5-5.0); LYMPH % 20.8 % (24.0-44.0); MEAN CORPUSCULAR HGB CONC 29.1 g/dl (32.0-36.5); MEAN CORPUSCULAR VOLUME 68.7 fl (80.0-96.0); MONO # 0.4 10^3/uL (0.0-0.8); MONO % 4.9 % (0.0-5.0); NEUTROPHILS # 6.4 10^3/uL (1.5-8.5); NEUTROPHILS % 71.3 % (36.0-66.0); PLATELET COUNT, AUTOMATED 383 10^3/uL (150-450); RED BLOOD COUNT 4.85 10^6/uL (4.00-5.40)
[2019-06-03] MEDS ORDERED: METOCLOPRAMIDE INJ 10MG/2ML VIAL (J2765) IV ONE (14:45)
[2019-06-03 14:48] LABS: INR 1.03; PARTIAL THROMBOPLASTIN TIME 25.2 SECONDS (25.0-38.4); PROTHROMBIN TIME 13.2 SECONDS (11.8-14.0)
[2019-06-03 14:49] LABS: BLOOD UREA NITROGEN 11 MG/DL (7-18); CALCIUM LEVEL 8.9 MG/DL (8.5-10.1); CARBON DIOXIDE LEVEL 28 MEQ/L (21-32); CHLORIDE LEVEL 104 MEQ/L (98-107); CK-MB VALUE MASS < 1.0 NG/ML (<3.6); CPK CREATINE PHOSPHOKINASE 70 U/L (26-192); CREATININE FOR GFR 1.07 MG/DL (0.55-1.30); GLOMERULAR FILTRATION RATE > 60.0 (>60); GLUCOSE, FASTING 92 MG/DL (70-100); HCG, SERUM QUALITATIVE NEGATIVE (NEGATIVE); MB/CK RELATIVE INDEX 1.43 (< OR =4); POTASSIUM SERUM 4.1 MEQ/L (3.5-5.1); SODIUM LEVEL 141 MEQ/L (136-145); TROPONIN I < 0.02 NG/ML (< 0.10)
--- NOTE | 2019-06-03 17:22 | REP ---
CHEST: Single view. There is no evidence of acute infiltrate. No pleural effusion is seen. The heart is normal in size. The mediastinal silhouette is unremarkable. The visualized osseous structures are intact. IMPRESSION: No acute pulmonary disease. Electronically Signed by Duarte Siddiqi MD 06/05/2019 09:55 A
[2019-06-03 17:32] VITALS: BP 167/82
--- NOTE | 2019-06-04 07:11 | ECGEPIP ---
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
== END 2019-06-03 17:37 | disposition home or self-care (01) ==
LOC: M ED 11:59
DX: G43.909 Migraine, unspecified, not intractable, without status migrainosus (principal); I10 Essential (primary) hypertension; E78.5 Hyperlipidemia, unspecified; K21.9 Gastro-esophageal reflux disease without esophagitis; Z91.041 Radiographic dye allergy status; Z88.0 Allergy status to penicillin; Z88.3 Allergy status to other anti-infective agents; Z88.1 Allergy status to other antibiotic agents; Z88.5 Allergy status to narcotic agent; Z79.899 Other long term (current) drug therapy
CPT/HCPCS: 36415; 70450; 71045; 80048; 82550; 82553; 84703; 85025; 85610; 85730; 86850; 86900; 86901; 93005; 93041; 94760; 96374; 99284; J2765

== ENCOUNTER → 2019-06-05 | Outpatient (REF) | payer OTHER ==
[~2019-06-05] MED LIST changes: +AIMO70IN SC; +METF-791 PO
[2019-06-05 17:41] LABS: PERCENT SATURATION 5.8 % (13.2-45.0)
[2019-06-05 17:46] LABS: HEMATOCRIT 33.6 % (36.0-47.0)
== END ==
LOC: M LAB REF 16:38
PROVIDERS: ATTEND Nurse Practitioner Adult Health
DX: D50.9 Iron deficiency anemia, unspecified (principal)

== ENCOUNTER → 2019-06-19 | Outpatient (REF) | payer OTHER ==
[2019-06-19 18:48] LABS: FREE T4 1.16 NG/DL (0.76-1.46); THYROID STIMULATING HORMONE 2.33 uIU/ML (0.358-3.740)
[2019-06-19 19:00] LABS: FOLATE 14.1 NG/ML
[2019-06-25 08:37] LABS: VITAMIN B1 LEVEL WHOLE BLOOD 97.3 nmol/L (66.5-200.0); VITAMIN B6,PYRIDOXAL PHOSPHATE 4.4 ug/L (2.0-32.8); VITAMIN E(ALPHA TOCOPHEROL) 10.5 mg/L (5.9-19.4); VITAMIN E(GAMMA TOCOPHEROL) 2.1 mg/L (0.7-4.9)
== END ==
LOC: M LABNEURO 14:57
PROVIDERS: ATTEND Psychiatry & Neurology Neurology
DX: R51 Headache (principal); E07.9 Disorder of thyroid, unspecified

== ENCOUNTER 2019-10-28 15:47 | Emergency (ER) | payer OTHER ==
[~2019-10-28] VITALS: Ht 162.6 cm; Wt 124.1 kg
[~2019-10-28 15:47] MED LIST changes: -OMEP40CA2; -OMEP40CA2 PO; +OMEP40CA97; +OMEP40CA97 PO
[2019-10-28] MEDS ORDERED: LIDOCAINE 5% OINT 30 GM TOP STA (17:32)
[2019-10-28] MEDS ORDERED: NS 1,000 ML IV ONE (17:45)
--- NOTE | 2019-10-28 18:16 | REP ---
Chest x-ray: Two views. History: Chest pain. Comparison chest x-ray: June 03, 2019. Findings: The lungs are well inflated and clear. The pleural angles are sharp. Heart size is normal. The pulmonary vasculature is not increased. No significant bony abnormality is seen. Impression: No acute disease. Electronically Signed by Matthew Cooper MD 10/28/2019 06:08 P
[2019-10-28] MEDS ORDERED: TOPI100T9 (18:35)
[2019-10-28] MEDS ORDERED: NORT10CA2 (18:35)
--- NOTE | 2019-10-28 18:49 | REPVR ---
PROCEDURE INFORMATION: Exam: US Duplex Right Upper Extremity Veins, Limited Exam date and time: 10/28/2019 6:24 PM Age: 39 years old Clinical indication: Pain; Arm, upper; Right; Additional info: Pain progressing up arm TECHNIQUE: Imaging protocol: Real-time Duplex ultrasound of the Right Upper Extremity with 2-D stanton scale, color Doppler flow and spectral waveform analysis with image documentation. Limited exam focused on the right upper extremity veins. COMPARISON: No relevant prior studies available. FINDINGS: Right deep veins: Unremarkable. Axillary and brachial veins are patent throughout without thrombus. Normal Doppler waveforms. Normal compressibility and/or augmentation response. Visualized internal jugular and subclavian veins are patent. Right superficial veins: Unremarkable. Visualized cephalic and basilic veins are patent without thrombus. Soft tissues: Unremarkable. IMPRESSION: No sonographic evidence of deep vein thrombosis. Electronically signed by: Jean-Paul Mazariegos On 10/28/2019 18:48:36 PM
--- NOTE | 2019-10-28 19:19 | ECGEPIP ---
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
[2019-10-28 20:21] LABS: BASO % 0.4 % (0.0-1.0); EOS # 0.2 10^3/uL (0.0-0.5); EOS % 2.5 % (0.0-3.0); HEMATOCRIT 32.3 % (36.0-47.0); HEMOGLOBIN 9.2 g/dl (12.0-15.5); LYMPH # 3.2 10^3/uL (1.5-5.0); LYMPH % 34.6 % (24.0-44.0); MEAN CORPUSCULAR HEMOGLOBIN 19.2 pg (27.0-33.0); MEAN CORPUSCULAR HGB CONC 28.5 g/dl (32.0-36.5); MEAN CORPUSCULAR VOLUME 67.6 fl (80.0-96.0); MONO # 0.4 10^3/uL (0.0-0.8); MONO % 4.8 % (0.0-5.0); NEUTROPHILS # 5.2 10^3/uL (1.5-8.5); NEUTROPHILS % 57.3 % (36.0-66.0); PLATELET COUNT, AUTOMATED 396 10^3/uL (150-450); RED BLOOD COUNT 4.78 10^6/uL (4.00-5.40); WHITE BLOOD COUNT 9.1 10^3/uL (4.0-10.0)
[2019-10-28 20:48] LABS: ALBUMIN 3.4 GM/DL (3.2-5.2); ALT/SGPT 18 U/L (12-78); BILIRUBIN,DIRECT < 0.1 MG/DL (0.0-0.2); BLOOD UREA NITROGEN 12 MG/DL (7-18); CARBON DIOXIDE LEVEL 21 MEQ/L (21-32); CHLORIDE LEVEL 113 MEQ/L (98-107); CK-MB VALUE MASS < 1.0 NG/ML (<3.6); CPK CREATINE PHOSPHOKINASE 76 U/L (26-192); CREATININE FOR GFR 1.01 MG/DL (0.55-1.30); GLOMERULAR FILTRATION RATE > 60.0 (>60); GLUCOSE, FASTING 89 MG/DL (70-100); LIPASE 90 U/L (73-393); MB/CK RELATIVE INDEX 1.32 (< OR =4); POTASSIUM SERUM 3.9 MEQ/L (3.5-5.1); SODIUM LEVEL 141 MEQ/L (136-145); TOTAL PROTEIN 6.7 GM/DL (6.4-8.2); TROPONIN I < 0.02 NG/ML (< 0.10)
[2019-10-28 21:00] LABS: BILIRUBIN,TOTAL < 0.1 MG/DL (0.2-1.0)
[2019-10-28 21:25] LABS: IRON (FE) 17 UG/DL (50-170); PERCENT SATURATION 4.1 % (13.2-45.0); TOTAL IRON BINDING CAPACITY 412 UG/DL (250-450)
[2019-10-28] MEDS ORDERED: ANEC4CRE3 TOP (21:54)
[2019-10-28 22:00] VITALS: BP 136/78
== END 2019-10-28 22:03 | disposition home or self-care (01) ==
LOC: M ED 15:47
DX: M79.621 Pain in right upper arm (principal); D64.9 Anemia, unspecified; R06.00 Dyspnea, unspecified; R07.9 Chest pain, unspecified; I10 Essential (primary) hypertension; E78.5 Hyperlipidemia, unspecified; E28.2 Polycystic ovarian syndrome; Z88.0 Allergy status to penicillin; Z88.1 Allergy status to other antibiotic agents; Z88.5 Allergy status to narcotic agent; Z91.041 Radiographic dye allergy status

== ENCOUNTER → 2020-01-20 | Outpatient (REF) | payer MEDICAID, OTHER ==
[~2020-01-20] MED LIST changes: +ANEC4CRE3 TOP; +FAMC500T PO; -FAMC500T10 PO; +NORT10CA2; +TOPI100T9
[2020-01-20 17:35] LABS: APPEARANCE, URINE CLEAR (CLEAR); BACTERIA, URINE AUTO NEGATIVE (NEGATIVE); BILIRUBIN, URINE AUTO NEGATIVE (NEGATIVE); BLOOD, URINE BLOOD NEGATIVE (NEGATIVE); COLOR, URINE STRAW (YELLOW); GLUCOSE, URINE (UA) AUTO NEGATIVE (NEGATIVE); KETONE, URINE AUTO NEGATIVE (NEGATIVE); LEUKOCYTE ESTERASE, URINE AUTO TRACE (NEGATIVE); NITRITE, URINE AUTO NEGATIVE (NEGATIVE); PROTEIN, URINE AUTO NEGATIVE (NEGATIVE); RBC, URINE AUTO 0 /HPF (0-3); SPECIFIC GRAVITY URINE AUTO 1.013 (1.002-1.035); SQUAMOUS EPITHELIAL CELL UR AU 0 /HPF (0-6); UROBILINOGEN, URINE AUTO 0.2 mg/dL (0.0-2.0); WBC, URINE AUTO 2 /HPF (0-3)
== END ==
LOC: M SMT 16:51
PROVIDERS: ATTEND Nurse Practitioner Women's Health
DX: R31.29 Other microscopic hematuria (principal)

== ENCOUNTER → 2020-05-20 | Outpatient (REF) | payer OTHER, MEDICAID ==
[~2020-05-20] MED LIST changes: -METF-791 PO; +METF-838 PO
[2020-05-21 05:39] LABS: APPEARANCE, URINE CLOUDY (CLEAR); BACTERIA, URINE AUTO 3+ (NEGATIVE); BILIRUBIN, URINE AUTO NEGATIVE (NEGATIVE); BLOOD, URINE BLOOD NEGATIVE (NEGATIVE); COLOR, URINE AMBER (YELLOW); GLUCOSE, URINE (UA) AUTO NEGATIVE (NEGATIVE); KETONE, URINE AUTO NEGATIVE (NEGATIVE); LEUKOCYTE ESTERASE, URINE AUTO 3+ (NEGATIVE); MUCUS, URINE SMALL (NEGATIVE); NITRITE, URINE AUTO NEGATIVE (NEGATIVE); PROTEIN, URINE AUTO NEGATIVE (NEGATIVE); RBC, URINE AUTO 1 /HPF (0-3); SPECIFIC GRAVITY URINE AUTO 1.016 (1.002-1.035); SQUAMOUS EPITHELIAL CELL UR AU 3 /HPF (0-6); TRANSITIONAL EPITHELIAL AUTO <1 /HPF; UROBILINOGEN, URINE AUTO 0.2 mg/dL (0.0-2.0); WBC, URINE AUTO 10 /HPF (0-3)
== END ==
LOC: M LAB REF 13:42
PROVIDERS: ATTEND Physician Assistant
DX: N39.0 Urinary tract infection, site not specified (principal)

== ENCOUNTER → 2020-09-03 | Outpatient (REF) | payer OTHER ==
[~2020-09-03] MED LIST changes: +ALBU8.5H INH; +FLUTISP INH; +NORT50CA PO; +PRED20TA; -TOPI100T9; +TOPI100T9 PO
[2020-09-03 13:21] LABS: PERCENT SATURATION 3.4 % (13.2-45.0)
== END ==
LOC: M LAB REF 12:34
PROVIDERS: ATTEND Internal Medicine
DX: D50.9 Iron deficiency anemia, unspecified (principal)

== ENCOUNTER → 2020-10-30 | Outpatient (REF) | payer OTHER ==
[~2020-10-30] MED LIST changes: -DICY20TA PO; +DICY20TA3 PO
== END ==
LOC: M LAB REF 12:10
PROVIDERS: ATTEND Physician Assistant
DX: R30.0 Dysuria (principal)

== ENCOUNTER → 2020-11-16 | Outpatient (REF) | payer OTHER ==
[2020-11-16 14:02] LABS: HEMATOCRIT 29.5 % (36.0-47.0)
[2020-11-16 14:37] LABS: PERCENT SATURATION 2.8 % (13.2-45.0)
== END ==
LOC: M LAB REF 12:35
PROVIDERS: ATTEND Nurse Practitioner Adult Health
DX: D50.9 Iron deficiency anemia, unspecified (principal)

== ENCOUNTER → 2021-02-24 | Outpatient (REF) | payer OTHER ==
[2021-02-27 06:10] LABS: F8 ACTIVITY FOR F8 PANEL 131 % (56-140); F8 ACTIVITY vWB FOR F8 PANEL 98 % (50-200); F8 ANTIGEN FOR F8 PANEL 117 % (50-200)
== END ==
LOC: M LAB REF 16:05
PROVIDERS: ATTEND Nurse Practitioner Adult Health
DX: Z79.899 Other long term (current) drug therapy (principal); Z83.2 Family history of diseases of the blood and blood-forming organs and certain disorders involving the immune mechanism

== ENCOUNTER → 2021-04-15 | Outpatient (CLI) | payer OTHER ==
[~2021-04-15] MED LIST changes: +NORT10CA2 PO; +OMEP40CA4; +OMEP40CA4 PO; -OMEP40CA97; -OMEP40CA97 PO
--- NOTE | 2021-04-15 09:02 | REP ---
INDICATION: LEFT KNEE TEAR OF MENISCUS. COMPARISON: 06/19/2018. TECHNIQUE: Multiple sequences obtained in the axial, coronal and sagittal planes. FINDINGS: Menisci: There is a tear of the posterior horn of the medial meniscus. The lateral meniscus is intact. Cruciate ligaments: Intact. Collateral ligaments: Intact. Extensor mechanism/patellar retinacula: Intact. Diffuse mild to moderate edema anterior to the patellar tendon and proximal tibia is unchanged. Cartilage: Diffuse moderately severe chondromalacia is again noted of the medial femoral condyle and tibial plateau. Moderate chondromalacia inferiorly of the patellar facets appears unchanged. There is mild diffuse chondromalacia of the lateral femoral condyle and tibial plateau. Bone marrow: There is mild subchondral marrow edema in the medial femoral condyle and tibial plateau, increased in the medial femoral condyle and improved in the medial tibial plateau. Islands of red marrow in the distal femoral diaphysis and proximal tibial diaphysis have mildly increased. Joint fluid: There is mild to moderate joint effusion, with fluid extending into the proximal tibiofibular articulation. This has mildly increased. Popliteal region: No cyst. IMPRESSION: Tear posterior horn medial meniscus. Cruciate and collateral ligaments intact. Unchanged chondromalacia, which is most significant of the medial femoral condyle and tibial plateau. Improved subchondral marrow edema in the medial tibial plateau, with increased subchondral marrow edema in the medial femoral condyle. Increased red marrow in the femoral and tibial shafts. Unchanged edema in the soft tissues anterior to the patellar tendon and proximal tibia. Increased mild to moderate effusion. <Electronically signed by Duarte Siddiqi > 04/15/21 [id number]
== END ==
LOC: M RAD 04-04 10:46 → M PLAIMG 07:23
PROVIDERS: ATTEND Orthopaedic Surgery
DX: S83.242D Other tear of medial meniscus, current injury, left knee, subsequent encounter (principal); X58.XXXD Exposure to other specified factors, subsequent encounter

== ENCOUNTER → 2021-04-17 | Outpatient (CLI) | payer OTHER | LOC: M LABSMTC 10:58 | PROVIDERS: ATTEND Anesthesiology | DX: Z20.828 Contact with and (suspected) exposure to other viral communicable diseases (principal); Z11.59 Encounter for screening for other viral diseases ==

== ENCOUNTER 2021-04-22 08:17 | Day surgery (SDC) | payer OTHER ==
[~2021-04-22] VITALS: Ht 162.6 cm; Wt 132.9 kg
[~2021-04-22 08:17] MED LIST changes: +LR 1,000 ML IV SCH
[2021-04-22] MEDS ORDERED: MIDAZOLAM INJ 2MG/2ML VIAL (J2250 PER 1MG) As Ordered ONE (09:11)
[2021-04-22] MEDS ORDERED: fentaNYL 100 MCG/2 ML INJECTION (J3010) As Ordered ONE ×2 (09:11→12:28)
[2021-04-22] MEDS ORDERED: HYDROmorphone HCL 2 MG/ML 1ML VIAL (J1170) As Ordered ONE (09:11)
[2021-04-22] MEDS ORDERED: ONDANSETRON 4MG/2ML VIAL As Ordered ONE ×2 (09:12→12:23)
[2021-04-22] MEDS ORDERED: ROCURONIUM BROMIDE 50 MG/5 ML VIAL As Ordered ONE ×2 (09:12→10:35)
[2021-04-22] MEDS ORDERED: propofoL 200 MG/20 ML VIAL As Ordered ONE (09:12)
[2021-04-22] MEDS ORDERED: LIDOCAINE 2% 100MG/5ML SDV (FOR ANES.) As Ordered ONE (09:12)
[2021-04-22] MEDS ORDERED: dexameTHASONE 4 MG/ML 1ML VIAL (J1100 PER 1MG) As Ordered ONE (09:12)
[2021-04-22] MEDS ORDERED: KETOROLAC 60MG 2ML VIAL As Ordered ONE (09:12)
[2021-04-22] MEDS ORDERED: ACETAMINOPHEN 1000MG 100ML IV BTL (OFIRMEV) (J0131 PER 10MG) As Ordered ONE (10:28)
[2021-04-22] MEDS ORDERED: SUGAMMADEX SODIUM 500 MG/5 ML VIAL (BRIDION) As Ordered ONE (10:31)
[2021-04-22] MEDS ORDERED: ePHEDrine SULFATE 25 MG/5 ML(5MG/ML) SYRINGE As Ordered ONE (10:50)
[2021-04-22] MEDS: fentaNYL 100 MCG/2 ML INJECTION (J3010) IV PRN ×2 (12:29→12:36)
[2021-04-22] MEDS ORDERED: LR 1,000 ML IV SCH (12:35)
[2021-04-22] MEDS ORDERED: oxyCODONE 5MG TAB PO PRN (12:35)
[2021-04-22] MEDS ORDERED: ONDANSETRON 4MG/2ML VIAL IV PRN (12:35)
[2021-04-22 13:57] VITALS: BP 146/77
--- NOTE | 2021-04-22 15:14 | RO ---
OPERATIVE NOTE DATE OF OPERATION: 04/22/2021 PREOPERATIVE DIAGNOSIS/INDICATION FOR SURGERY: Desire for tubal ligation and bleeding and pain and desire for ablation. POSTOPERATIVE DIAGNOSIS: Desire for tubal ligation and bleeding and pain and desire for ablation. FINDINGS: As expected. She did have a bulky uterus. It is possible there are some fibroids there but no other shocking surprises. The patient is robustly built. We did need the longer trocar. The regular Darlene just was not long enough. PROCEDURE: Laparoscopy with bilateral tubal ligation by fulguration and hysteroscopy, D&C and ablation. SURGEON: Liyah Mccarthy MD COLOR CONTROL OPERATOR: None ANESTHESIA: General endotracheal anesthesia SPECIMENS: Endometrium that was thinned out. BRIEF DESCRIPTION OF PROCEDURE AND FINDINGS: Sara was brought to the operating room where sufficient general endotracheal anesthesia was induced. She was prepped, draped and positioned in the usual sterile fashion. The uterine manipulator placed after the uterus had been sound to 9 with length of cavity of 5. We then turned out attention to the abdomen. A transverse semilunar incision was made below the umbilicus. Sharp and blunt dissection continued through subcutaneous tissues to the level of the rectus fascia which was transversely incised and secured with 0 Vicryl retention sutures. She had a well-developed posterior sheath as well. This, too, was elevated with Abner clamps, transversely incised and with some effort, the peritoneum reached and entered. The Darlene placed but with removing the thinner parts so that we could fill, it becomes too short so we had to get the extra long trocar and use it but with that, we were able to get to the peritoneal cavity and insufflate quickly in order to visualize. We did need Trendelenburg to elevate the omentum out of the way in this patient with a relatively immobile uterus and with that and the uterine manipulator, we were able to visualize the tube to the fimbriated end starting on the left side. We cauterized in three separate locations. I could not get safely away from the bowel for four as is typical but we were able to get three separate locations on each tube using the bipolar cautery, first left side and then right side, again identified to the fimbriated end and cauterized the tube carefully, being careful to stay away also from bowel and from uterine vasculature, etc. After the bipolar cauterization of both tubes, that portion of the procedure was done. We did not have an optimal visualization of the ovaries but what we could see of them was normal and of course, the patient had not been set up for robot Trend but we did have fairly steep Trend and she has a fairly lack of distention of the fascial band at the umbilicus in the fascial layer and so we really did not get as much distention away from bowel as we typically would but of course we were able to get well away from it for this procedure and then we went ahead and finished up with the laparoscopic portion of the case, allowing the CO2 to escape, removing all the instruments, closing the fascial wound with a 0 Vicryl retention suture and the skin wound with 3-0 Vicryl in a subcuticular stitch and dry sterile dressing then applied. Then we turned out attention to the hysteroscopy. After removing the uterine manipulator and using the single-tooth tenaculum on the anterior aspect of the cervix that had already been placed, we were able to place the hysteroscope. We did have some back leakage as is common when you have already had manipulator in the cervix so we really could not distend the uterus well but we could confirm that there was no perforation as we had seen from above. There was some overgrowth consistent with this premenopausal woman's complaints of bleeding and we did do some curettage to thin out and normalize that lining and then we placed the NovaSure ablative device. Again length was set at 5. Width was measured at 4.5 and an uncomplicated NovaSure ablation was then carried out. It is true that the uterus is not readily accessible from below should that become necessary in the future. Even though she does have some relaxation under anesthesia, she would not be an optimal candidate for a straight vaginal approach but of course today we did the ablation with every expectation of succeeding. There were no complications to the ablation being done. The only specimen is endometrium. ESTIMATED BLOOD LOSS: For the procedure, maybe 8 mL. FLUID REPLACEMENT: Crystalloid. COMPLICATIONS: None. CONDITION AND DISPOSITION: Sara tolerated the procedure well and was recovering in the recovery room in good condition.
== END 2021-04-22 14:04 | disposition home or self-care (01) ==
LOC: M SDC 08:17
PROVIDERS: ATTEND Obstetrics & Gynecology
DX: R10.2 Pelvic and perineal pain (principal); N93.9 Abnormal uterine and vaginal bleeding, unspecified; Z30.2 Encounter for sterilization; G43.909 Migraine, unspecified, not intractable, without status migrainosus; K21.9 Gastro-esophageal reflux disease without esophagitis; Z79.899 Other long term (current) drug therapy; Z91.041 Radiographic dye allergy status; Z88.0 Allergy status to penicillin; Z88.5 Allergy status to narcotic agent; Z88.1 Allergy status to other antibiotic agents; Z88.8 Allergy status to other drugs, medicaments and biological substances
CPT/HCPCS: 58563; 58670; 81025; 88305; J0131; J1100; J1170; J1885; J2250; J2405; J3010

== ENCOUNTER 2021-04-25 22:52 | Emergency (ER) | payer OTHER ==
[~2021-04-25 22:52] MED LIST changes: -LR 1,000 ML IV SCH
[2021-04-26 01:30] VITALS: BP 173/96
== END 2021-04-26 02:05 | disposition left against medical advice (07) ==
LOC: M ED 22:52
DX: Z53.21 Procedure and treatment not carried out due to patient leaving prior to being seen by health care provider (principal)

== ENCOUNTER → 2021-06-02 | Outpatient (REF) | payer OTHER ==
[2021-06-03 13:59] LABS: PERCENT SATURATION 3.8 % (13.2-45.0)
== END ==
LOC: M LAB REF 11:37
PROVIDERS: ATTEND Internal Medicine
DX: D50.9 Iron deficiency anemia, unspecified (principal)

== ENCOUNTER 2021-06-14 07:29 | Outpatient (CLI) | payer OTHER ==
[~2021-06-14] VITALS: Ht 162.6 cm; Wt 125.0 kg
[2021-06-14] VITALS (7 sets, daily range): BP systolic 128–146; BP diastolic 62–81
[2021-06-14] MEDS ORDERED: IRON SUCROSE 25 MG in NS 25 ML IV ONE (07:30)
[2021-06-14] MEDS ORDERED: OZEM2INJ SC (07:51)
[2021-06-14] MEDS ORDERED: diphenhydrAMINE 25MG CAP PO ONE (08:25)
[2021-06-14] MEDS ORDERED: ACETAMINOPHEN TAB 650MG DOSE (2X325MG) PO ONE (08:25)
[2021-06-14] MEDS ORDERED: IRON SUCROSE 475 MG in NS 250 ML IV ONE (08:30)
== END 2021-06-14 13:40 | disposition home or self-care (01) ==
LOC: M INFU 07:29
PROVIDERS: ATTEND Internal Medicine
DX: D50.9 Iron deficiency anemia, unspecified (principal); Z88.1 Allergy status to other antibiotic agents; Z88.0 Allergy status to penicillin; Z88.8 Allergy status to other drugs, medicaments and biological substances
CPT/HCPCS: 96365; 96366; J1756

== ENCOUNTER → 2021-07-02 | Outpatient (REF) | payer OTHER ==
[~2021-07-02] MED LIST changes: +OZEM2INJ SC
[2021-07-06 12:08] LABS: F8 ACTIVITY FOR F8 PANEL 137 % (56-140); F8 ACTIVITY vWB FOR F8 PANEL 130 % (50-200); F8 ANTIGEN FOR F8 PANEL 148 % (50-200)
== END ==
LOC: M LAB REF 13:42
PROVIDERS: ATTEND Internal Medicine
DX: D50.9 Iron deficiency anemia, unspecified (principal); R23.3 Spontaneous ecchymoses

== ENCOUNTER → 2021-08-04 | Outpatient (REF) | payer OTHER | LOC: M LAB REF 12:24 | PROVIDERS: ATTEND Internal Medicine | DX: Z01.810 Encounter for preprocedural cardiovascular examination (principal) ==

== ENCOUNTER → 2021-10-13 | Outpatient (REF) | LOC: M LAB 12:04 | PROVIDERS: ATTEND Nurse Practitioner Adult Health | DX: Z02.89 Encounter for other administrative examinations (principal) ==

== ENCOUNTER 2021-10-22 10:11 | Outpatient (CLI) | payer OTHER ==
[~2021-10-22] VITALS: Ht 162.6 cm; Wt 129.1 kg
[2021-10-22] MEDS ORDERED: IRON SUCROSE 475 MG in NS 250 ML IV ONE (10:30)
[2021-10-22] MEDS ORDERED: IRON SUCROSE 500 MG in NS 250 ML OVER 4 HRS IV ONE (10:30)
[2021-10-22] MEDS ORDERED: IRON SUCROSE 25 MG in NS 25 ML IV ONE (10:30)
[2021-10-22 11:20] VITALS: BP 157/82
[2021-10-22 12:50] VITALS: BP 160/80
[2021-10-22 14:38] VITALS: BP 169/81
== END 2021-10-22 14:40 | disposition home or self-care (01) ==
LOC: M INFU 10:11
PROVIDERS: ATTEND Internal Medicine
DX: D50.9 Iron deficiency anemia, unspecified (principal); Z88.1 Allergy status to other antibiotic agents; Z88.0 Allergy status to penicillin; Z88.8 Allergy status to other drugs, medicaments and biological substances
CPT/HCPCS: 96365; 96366; J1756

== ENCOUNTER 2022-01-14 13:57 | Emergency (ER) | payer OTHER ==
[~2022-01-14] VITALS: Ht 162.6 cm; Wt 132.0 kg
[2022-01-14] MEDS ORDERED: diphenhydrAMINE 50MG/ML VIAL (J1200) IV STA (14:15)
[2022-01-14] MEDS ORDERED: METOCLOPRAMIDE INJ 10MG/2ML VIAL (J2765 PER 1) IV ONE (14:15)
[2022-01-14] MEDS ORDERED: MIDAZOLAM INJ 2MG/2ML VIAL (J2250 PER 1MG) IV STA (14:53)
[2022-01-14] MEDS ORDERED: ACETAMINOPHEN 500 MG TAB PO ONE (16:55)
[2022-01-14] MEDS ORDERED: METOCLOPRAMIDE 10MG TAB PO ONE (16:55)
[2022-01-14] MEDS ORDERED: KETOROLAC TROMETHAMINE 10 MG TAB PO ONE (16:55)
[2022-01-14] MEDS ORDERED: diphenhydrAMINE 50MG CAP PO ONE (17:05)
[2022-01-14 18:04] LABS: BASO % 0.4 % (0.0-1.0); EOS # 0.3 10^3/uL (0.0-0.5); EOS % 2.5 % (0.0-3.0); HEMATOCRIT 34.1 % (36.0-47.0); HEMOGLOBIN 10.5 g/dl (12.0-15.5); LYMPH # 2.6 10^3/uL (1.5-5.0); MEAN CORPUSCULAR HEMOGLOBIN 21.5 pg (27.0-33.0); MEAN CORPUSCULAR HGB CONC 30.8 g/dl (32.0-36.5); MEAN CORPUSCULAR VOLUME 69.7 fl (80.0-96.0); MONO # 0.5 10^3/uL (0.0-0.8); NEUTROPHILS # 6.6 10^3/uL (1.5-8.5); NEUTROPHILS % 65.8 % (36.0-66.0); PLATELET COUNT, AUTOMATED 360 10^3/uL (150-450); RED BLOOD COUNT 4.89 10^6/uL (4.00-5.40)
[2022-01-14 18:15] LABS: INR 0.97; PROTHROMBIN TIME 13.3 SECONDS (12.7-14.5)
[2022-01-14 18:16] LABS: PARTIAL THROMBOPLASTIN TIME 25.5 SECONDS (25.9-37.0)
[2022-01-14 18:27] LABS: CALCIUM LEVEL 8.3 MG/DL (8.5-10.1); CREATININE FOR GFR 1.2 MG/DL (0.55-1.30); GLOMERULAR FILTRATION RATE 52.4 (>58); POTASSIUM SERUM 3.8 MEQ/L (3.5-5.1)
[2022-01-14 18:30] VITALS: BP 148/69
== END 2022-01-14 18:46 | disposition home or self-care (01) ==
LOC: M ED 13:57
DX: G44.59 Other complicated headache syndrome (principal); I10 Essential (primary) hypertension; K21.9 Gastro-esophageal reflux disease without esophagitis; E78.5 Hyperlipidemia, unspecified; Z86.73 Personal history of transient ischemic attack (TIA), and cerebral infarction without residual deficits; Z79.899 Other long term (current) drug therapy; Z88.0 Allergy status to penicillin; Z88.6 Allergy status to analgesic agent; Z88.8 Allergy status to other drugs, medicaments and biological substances
CPT/HCPCS: 36415; 70450; 70544; 70551; 80048; 85025; 85610; 85730; 93005; 93041; 94760; 96374; 99285; J2250

== ENCOUNTER → 2022-01-19 | Outpatient (CLI) | payer OTHER ==
[2022-01-19 11:41] LABS: BASO % 0.4 % (0.0-1.0); EOS # 0.2 10^3/uL (0.0-0.5); EOS % 2.6 % (0.0-3.0); HEMATOCRIT 38.3 % (36.0-47.0); HEMOGLOBIN 11.8 g/dl (12.0-15.5); LYMPH # 2.1 10^3/uL (1.5-5.0); LYMPH % 27.4 % (24.0-44.0); MEAN CORPUSCULAR HEMOGLOBIN 21.6 pg (27.0-33.0); MEAN CORPUSCULAR HGB CONC 30.8 g/dl (32.0-36.5); MEAN CORPUSCULAR VOLUME 70.1 fl (80.0-96.0); MONO # 0.4 10^3/uL (0.0-0.8); MONO % 4.7 % (2.0-8.0); NEUTROPHILS % 64.6 % (36.0-66.0); PLATELET COUNT, AUTOMATED 403 10^3/uL (150-450); RED BLOOD COUNT 5.46 10^6/uL (4.00-5.40); WHITE BLOOD COUNT 7.8 10^3/uL (4.0-10.0)
[2022-01-19 11:54] LABS: ERYTHROCYTE SEDIMENTATION RATE 30 mm/hr (0-20)
[2022-01-19 12:07] LABS: ALBUMIN 3.8 GM/DL (3.2-5.2); ALT/SGPT 30 U/L (12-78); BILIRUBIN,TOTAL 0.4 MG/DL (0.2-1.0); BLOOD UREA NITROGEN 14 MG/DL (7-18); CALCIUM LEVEL 8.7 MG/DL (8.5-10.1); CARBON DIOXIDE LEVEL 23 MEQ/L (21-32); CHLORIDE LEVEL 111 MEQ/L (98-107); FERRITIN 16 NG/ML (8-252); FREE T4 1.28 NG/DL (0.76-1.46); GLOMERULAR FILTRATION RATE > 60.0 (>58); GLUCOSE, FASTING 90 MG/DL (70-100); IRON (FE) 25 UG/DL (50-170); PERCENT SATURATION 5.4 % (13.2-45.0); POTASSIUM SERUM 4.1 MEQ/L (3.5-5.1); RHEUMATOID FACTOR QUANT < 10.0 IU/ML (<15.0); SODIUM LEVEL 140 MEQ/L (136-145); TOTAL IRON BINDING CAPACITY 460 UG/DL (250-450); TOTAL PROTEIN 7.4 GM/DL (6.4-8.2)
[2022-01-19 12:10] LABS: FOLATE > 24.0 NG/ML (>5.4); VITAMIN B12 LEVEL 495 PG/ML (247-911)
[2022-01-19 12:28] LABS: HEMOGLOBIN A1c 5.6 %
== END ==
LOC: M LAB 10:26
PROVIDERS: ATTEND Psychiatry & Neurology Neurology
DX: E06.9 Thyroiditis, unspecified (principal); E11.9 Type 2 diabetes mellitus without complications; D50.9 Iron deficiency anemia, unspecified

== ENCOUNTER → 2022-02-14 | Outpatient (REF) | payer OTHER | LOC: M LAB REF 16:03 | PROVIDERS: ATTEND Physician Assistant Medical | DX: R53.83 Other fatigue (principal); R50.9 Fever, unspecified; J06.9 Acute upper respiratory infection, unspecified ==

== ENCOUNTER → 2022-05-13 | Outpatient (REF) ==
[~2022-05-13] MED LIST changes: -TRIA37.53 PO; +TRIA37.577 PO
== END ==
LOC: M EMP 11:18
PROVIDERS: ATTEND Family Medicine
DX: Z11.52 Encounter for screening for COVID-19 (principal)

== ENCOUNTER → 2022-06-01 | Outpatient (REF) | payer OTHER ==
[2022-06-01 13:53] LABS: PERCENT SATURATION 6.7 % (13.2-45.0)
== END ==
LOC: M LAB REF 11:59
PROVIDERS: ATTEND Internal Medicine
DX: D50.9 Iron deficiency anemia, unspecified (principal); N39.0 Urinary tract infection, site not specified

== ENCOUNTER → 2022-07-13 | Outpatient (CLI) | payer OTHER | LOC: M CARPUL 08:40 | PROVIDERS: ATTEND Internal Medicine | DX: I50.33 Acute on chronic diastolic (congestive) heart failure (principal) ==

== ENCOUNTER → 2022-08-31 | Outpatient (REF) | payer OTHER ==
[2022-08-31 13:36] LABS: FERRITIN 5.1 NG/ML (7.3-270.7)
[2022-08-31 13:37] LABS: PERCENT SATURATION 6.6 % (13.2-45.0)
== END ==
LOC: M LAB REF 12:35
PROVIDERS: ATTEND Internal Medicine
DX: D50.9 Iron deficiency anemia, unspecified (principal)

== ENCOUNTER → 2022-09-01 | Outpatient (REF) ==
[2022-09-01 09:30] LABS: RSV AMPLIFICATION NEGATIVE (NEGATIVE)
== END ==
LOC: M LABSMTC 08:38
PROVIDERS: ATTEND Family Medicine
DX: Z20.822 Contact with and (suspected) exposure to COVID-19 (principal)

== ENCOUNTER 2022-09-06 12:57 | Outpatient (CLI) | payer OTHER ==
[~2022-09-06] VITALS: Ht 162.6 cm; Wt 126.4 kg
[~2022-09-06 12:57] MED LIST changes: +ALBUTEROL SULFATE 2.5 MG/0.5 ML INH NEB SOLN INH PRN; +EPINEPHrine INJ 1 MG/ML 1ML AMP IM PRN; +diphenhydrAMINE 50MG/ML VIAL IV PRN; +methylPREDNISolone 125MG 2ML VIAL IV PRN
[2022-09-06 13:16] VITALS: BP 162/77
[2022-09-06] MEDS ORDERED: NS 1,000 ML IV SCH (13:30)
[2022-09-06] MEDS ORDERED: FERRIC CARBOXYMALTOSE INJ 750 MG in NS 250 ML (>50kg) IV ONE ×3 (13:30)
[2022-09-06] MEDS ORDERED: [UNRECOGNIZED DRUG - CODE] IV (13:32)
[2022-09-06 14:40] VITALS: BP 145/74
== END 2022-09-06 14:35 | disposition home or self-care (01) ==
LOC: M INFU 12:57
PROVIDERS: ATTEND Internal Medicine
DX: D50.9 Iron deficiency anemia, unspecified (principal); Z88.0 Allergy status to penicillin; Z88.1 Allergy status to other antibiotic agents; Z88.6 Allergy status to analgesic agent; Z91.041 Radiographic dye allergy status
CPT/HCPCS: 96365; J1439

== ENCOUNTER → 2022-09-14 | Outpatient (REF) ==
[~2022-09-14] MED LIST changes: -ALBUTEROL SULFATE 2.5 MG/0.5 ML INH NEB SOLN INH PRN; -EPINEPHrine INJ 1 MG/ML 1ML AMP IM PRN; +[UNRECOGNIZED DRUG - CODE] IV; -diphenhydrAMINE 50MG/ML VIAL IV PRN; -methylPREDNISolone 125MG 2ML VIAL IV PRN
[2022-09-14 11:32] LABS: RSV AMPLIFICATION NEGATIVE (NEGATIVE)
== END ==
LOC: M EMP 10:28
PROVIDERS: ATTEND Family Medicine
DX: Z20.818 Contact with and (suspected) exposure to other bacterial communicable diseases (principal)

== ENCOUNTER → 2022-09-20 | Outpatient (REF) ==
[2022-09-20 13:16] LABS: RSV AMPLIFICATION NEGATIVE (NEGATIVE)
== END ==
LOC: M LABSMTC 11:46
PROVIDERS: ATTEND Family Medicine
DX: Z20.818 Contact with and (suspected) exposure to other bacterial communicable diseases (principal)

== ENCOUNTER → 2022-10-04 | Outpatient (REF) ==
[2022-10-04 10:23] LABS: RSV AMPLIFICATION NEGATIVE (NEGATIVE)
== END ==
LOC: M EMP 08:59
PROVIDERS: ATTEND Family Medicine
DX: Z11.52 Encounter for screening for COVID-19 (principal)

== ENCOUNTER → 2022-11-30 | Outpatient (CLI) | payer OTHER ==
[~2022-11-30] MED LIST changes: +PHEN15CA6 PO; +ZOLO25TA PO
== END ==
LOC: M LABSMTC 09:22
PROVIDERS: ATTEND Anesthesiology
DX: Z01.818 Encounter for other preprocedural examination (principal)

== ENCOUNTER 2022-12-05 11:35 | Day surgery (SDC) | payer OTHER ==
[~2022-12-05] VITALS: Ht 162.6 cm; Wt 131.5 kg
[~2022-12-05 11:35] MED LIST changes: +NS 1,000 ML IV ONE
[2022-12-05] MEDS ORDERED: LIDOCAINE 2% 100MG/5ML SDV (FOR ANES.) As Ordered ONE (12:51)
[2022-12-05] MEDS ORDERED: fentaNYL 100 MCG/2 ML INJECTION As Ordered ONE (12:51)
[2022-12-05] MEDS ORDERED: propofoL 500 MG/50 ML VIAL As Ordered ONE (12:51)
[2022-12-05] MEDS ORDERED: MIDAZOLAM INJ 2MG/2ML VIAL As Ordered ONE (13:11)
[2022-12-05 14:09] VITALS: BP 170/77
== END 2022-12-05 14:08 | disposition home or self-care (01) ==
LOC: M OPP 11:35
PROVIDERS: ATTEND Internal Medicine Gastroenterology
DX: K64.0 First degree hemorrhoids (principal); D50.9 Iron deficiency anemia, unspecified; K31.7 Polyp of stomach and duodenum; K29.70 Gastritis, unspecified, without bleeding; K22.89 Other specified disease of esophagus; E11.9 Type 2 diabetes mellitus without complications; G47.33 Obstructive sleep apnea (adult) (pediatric); I42.2 Other hypertrophic cardiomyopathy; F41.9 Anxiety disorder, unspecified; Z79.899 Other long term (current) drug therapy; Z88.0 Allergy status to penicillin; Z88.1 Allergy status to other antibiotic agents; Z88.5 Allergy status to narcotic agent; Z88.8 Allergy status to other drugs, medicaments and biological substances; Z85.858 Personal history of malignant neoplasm of other endocrine glands; Z86.73 Personal history of transient ischemic attack (TIA), and cerebral infarction without residual deficits
CPT/HCPCS: 43239; 45378; 88305; J2250; J3010

== ENCOUNTER → 2023-01-09 | Outpatient (REF) | payer OTHER ==
[~2023-01-09] MED LIST changes: +ASPI81CH8 PO; +ATOR1TAB19 PO; +FLUT50SP17 INH; -FLUTISP INH; -NS 1,000 ML IV ONE; +OLME1TAB49 PO; +PAME10CA PO; +RIME75TA PO
[2023-01-10 14:38] LABS: PERCENT SATURATION 11.3 % (13.2-45.0)
[2023-01-10 14:41] LABS: FERRITIN 61.8 NG/ML (7.3-270.7)
== END ==
LOC: M LAB REF 12:51
PROVIDERS: ATTEND Internal Medicine
DX: D50.9 Iron deficiency anemia, unspecified (principal)

== ENCOUNTER 2023-01-26 07:13 | Emergency (ER) | payer OTHER ==
[~2023-01-26] VITALS: Ht 162.6 cm; Wt 128.6 kg
[2023-01-26 08:17] LABS: BASO % 0.5 % (0.0-1.0); EOS # 0.2 10^3/uL (0.0-0.5); EOS % 2.6 % (0.0-3.0); HEMATOCRIT 41.6 % (36.0-47.0); HEMOGLOBIN 13.3 g/dl (12.0-15.5); LYMPH # 1.6 10^3/uL (1.5-5.0); LYMPH % 20.9 % (24.0-44.0); MEAN CORPUSCULAR HEMOGLOBIN 26.4 pg (27.0-33.0); MEAN CORPUSCULAR VOLUME 82.5 fl (80.0-96.0); MONO # 0.4 10^3/uL (0.0-0.8); MONO % 4.6 % (2.0-8.0); NEUTROPHILS # 5.6 10^3/uL (1.5-8.5); NEUTROPHILS % 71.1 % (36.0-66.0); PLATELET COUNT, AUTOMATED 291 10^3/uL (150-450); RED BLOOD COUNT 5.04 10^6/uL (4.00-5.40); WHITE BLOOD COUNT 7.8 10^3/uL (4.0-10.0)
[2023-01-26] MEDS ORDERED: diphenhydrAMINE 50MG/ML VIAL IV STA (08:23)
[2023-01-26] MEDS ORDERED: NS 1,000 ML IV ONE (08:25)
[2023-01-26] MEDS ORDERED: METOCLOPRAMIDE INJ 10MG/2ML VIAL IV ONE (08:25)
[2023-01-26 08:34] LABS: BLOOD UREA NITROGEN 15 MG/DL (9-23); CALCIUM LEVEL 8.7 MG/DL (8.5-10.1); CARBON DIOXIDE LEVEL 22 MMOL/L (20-31); CHLORIDE LEVEL 109 MMOL/L (98-107); CREATININE FOR GFR 0.89 MG/DL (0.55-1.30); GLOMERULAR FILTRATION RATE > 60.0 (>58); GLUCOSE, FASTING 90 MG/DL (60-100); POTASSIUM SERUM 3.7 MMOL/L (3.5-5.1); SODIUM LEVEL 139 MMOL/L (136-145)
[2023-01-26] MEDS ORDERED: KETOROLAC 30 MG/ML 1ML VIAL IV ONE (08:45)
[2023-01-26 10:01] VITALS: BP 133/59
[2023-01-26] MEDS ORDERED: LORazepam 2 MG/ML 1ML VIAL IV STA (10:05)
== END 2023-01-26 10:27 | disposition home or self-care (01) ==
LOC: M ED 07:13
DX: G43.109 Migraine with aura, not intractable, without status migrainosus (principal); I10 Essential (primary) hypertension; E78.5 Hyperlipidemia, unspecified; E11.9 Type 2 diabetes mellitus without complications; K21.9 Gastro-esophageal reflux disease without esophagitis; C07 Malignant neoplasm of parotid gland; Z87.442 Personal history of urinary calculi; Z88.0 Allergy status to penicillin; Z88.1 Allergy status to other antibiotic agents; Z88.5 Allergy status to narcotic agent; Z86.73 Personal history of transient ischemic attack (TIA), and cerebral infarction without residual deficits; Z91.041 Radiographic dye allergy status; Z79.02 Long term (current) use of antithrombotics/antiplatelets; Z79.83 Long term (current) use of bisphosphonates; Z79.82 Long term (current) use of aspirin; Z79.899 Other long term (current) drug therapy
CPT/HCPCS: 70450; 71045; 80048; 85025; 93005; 93041; 94760; 96361; 96374; 96375; 99285; J1200; J1885; J2060; J2765

== ENCOUNTER → 2023-03-24 | Outpatient (CLI) | payer OTHER | LOC: M RAD 08:59 | PROVIDERS: ATTEND Orthopaedic Surgery | DX: M25.561 Pain in right knee (principal) ==

== ENCOUNTER → 2023-08-23 | Outpatient (REF) | LOC: M EMP 13:28 | PROVIDERS: ATTEND Family Medicine | DX: Z11.52 Encounter for screening for COVID-19 (principal) ==

== ENCOUNTER → 2023-09-11 | Outpatient (REF) ==
[~2023-09-11] MED LIST changes: -FLUT50SP17 INH; +FLUTISP INH
== END ==
LOC: M EMP 12:45
PROVIDERS: ATTEND Family Medicine
DX: Z11.52 Encounter for screening for COVID-19 (principal)

== ENCOUNTER → 2023-10-13 | Outpatient (CLI) | payer OTHER | LOC: M RAD 15:08 | PROVIDERS: ATTEND Physician Assistant | DX: M79.661 Pain in right lower leg (principal) ==

== ENCOUNTER → 2023-11-20 | Outpatient (REF) | payer OTHER ==
[2023-11-20 17:19] LABS: APPEARANCE, URINE CLEAR (CLEAR); BACTERIA, URINE AUTO 1+ (NEGATIVE); BILIRUBIN, URINE AUTO NEGATIVE (NEGATIVE); BLOOD, URINE BLOOD NEGATIVE (NEGATIVE); COLOR, URINE YELLOW (YELLOW); GLUCOSE, URINE (UA) AUTO NEGATIVE (NEGATIVE); KETONE, URINE AUTO NEGATIVE (NEGATIVE); LEUKOCYTE ESTERASE, URINE AUTO 3+ (NEGATIVE); NITRITE, URINE AUTO NEGATIVE (NEGATIVE); PROTEIN, URINE AUTO NEGATIVE (NEGATIVE); RBC, URINE AUTO 1 /HPF (0-3); SPECIFIC GRAVITY URINE AUTO 1.009 (1.002-1.035); SQUAMOUS EPITHELIAL CELL UR AU 1 /HPF (0-6); UROBILINOGEN, URINE AUTO 0.2 mg/dL (0.0-2.0); WBC, URINE AUTO 30 /HPF (0-3)
== END ==
LOC: M LAB REF 16:15
PROVIDERS: ATTEND Physician Assistant Medical
DX: N39.0 Urinary tract infection, site not specified (principal)

== ENCOUNTER 2024-01-23 02:58 | Emergency (ER) | payer OTHER ==
[~2024-01-23] VITALS: Ht 162.6 cm; Wt 131.8 kg
[2024-01-23] MEDS ORDERED: ONDANSETRON 4MG 2ML VIAL IV ONE (03:30)
[2024-01-23 03:31] VITALS: TEMP 97.8
[2024-01-23] MEDS: HYDROMORPHONE HCL 0.5 MG/ 0.5 ML SYRINGE IV PRN (03:45)
[2024-01-23] MEDS: PROMETHAZINE 25MG/ML 1ML VIAL IV ONE (03:46)
[2024-01-23 03:58] LABS: CK-MB VALUE MASS < 1.0 NG/ML (<3.6)
[2024-01-23 04:00] LABS: BLOOD UREA NITROGEN 20 MG/DL (9-23); CALCIUM LEVEL 8.3 MG/DL (8.5-10.1); CARBON DIOXIDE LEVEL 22 MMOL/L (20-31); CHLORIDE LEVEL 108 MMOL/L (98-107); CPK CREATINE PHOSPHOKINASE 72 U/L (34-145); CREATININE FOR GFR 0.84 MG/DL (0.55-1.30); GLOMERULAR FILTRATION RATE > 60.0 (>58); GLUCOSE, FASTING 119 MG/DL (60-100); MB/CK RELATIVE INDEX 1.38 (< OR =4); POTASSIUM SERUM 3.8 MMOL/L (3.5-5.1); SODIUM LEVEL 141 MMOL/L (136-145)
[2024-01-23 04:05] LABS: BASO % 0.4 % (0.0-1.0); EOS # 0.3 10^3/uL (0.0-0.5); EOS % 2.8 % (0.0-3.0); HEMATOCRIT 37.4 % (36.0-47.0); HEMOGLOBIN 11.6 g/dl (12.0-15.5); LYMPH # 2.1 10^3/uL (1.5-5.0); MEAN CORPUSCULAR HEMOGLOBIN 24.1 pg (27.0-33.0); MEAN CORPUSCULAR VOLUME 77.6 fl (80.0-96.0); MONO # 0.4 10^3/uL (0.0-0.8); MONO % 4.6 % (2.0-8.0); NEUTROPHILS # 6.2 10^3/uL (1.5-8.5); NEUTROPHILS % 69.1 % (36.0-66.0); PLATELET COUNT, AUTOMATED 313 10^3/uL (150-450); RED BLOOD COUNT 4.82 10^6/uL (4.00-5.40); WHITE BLOOD COUNT 8.9 10^3/uL (4.0-10.0)
[2024-01-23 04:57] LABS: CK-MB VALUE MASS < 1.0 NG/ML (<3.6)
[2024-01-23 04:57] LABS: LIPASE 30 U/L (12-53)
[2024-01-23 04:59] LABS: ALBUMIN 3.2 G/DL (3.2-5.2); ALKALINE PHOSPHATASE 75 U/L (46-116); ALT/SGPT 24 U/L (7.0-40); AST/SGOT 13 U/L (<34); BILIRUBIN,DIRECT < 0.1 MG/DL (<0.4); BILIRUBIN,TOTAL 0.2 MG/DL (0.3-1.2); TOTAL PROTEIN 6.5 G/DL (5.7-8.2)
[2024-01-23 05:00] LABS: CPK CREATINE PHOSPHOKINASE 76 U/L (34-145); MB/CK RELATIVE INDEX 1.31 (< OR =4)
[2024-01-23] MEDS: MAALOX 30 ML SUSP *UDC PO ONE (05:15)
[2024-01-23] MEDS ORDERED: PEPC1TAB5 PO (05:55)
[2024-01-23] MEDS ORDERED: CARA1TAB6 PO (05:55)
[2024-01-23 06:00] VITALS: BP 130/63; O2SAT 97
== END 2024-01-23 06:14 | disposition home or self-care (01) ==
LOC: M ED 02:58
DX: K21.9 Gastro-esophageal reflux disease without esophagitis (principal); I10 Essential (primary) hypertension; G43.909 Migraine, unspecified, not intractable, without status migrainosus; N18.9 Chronic kidney disease, unspecified; F41.9 Anxiety disorder, unspecified; E28.2 Polycystic ovarian syndrome; Z79.82 Long term (current) use of aspirin; Z79.02 Long term (current) use of antithrombotics/antiplatelets; Z79.810 Long term (current) use of selective estrogen receptor modulators (SERMs); Z79.899 Other long term (current) drug therapy; Z88.0 Allergy status to penicillin; Z88.1 Allergy status to other antibiotic agents; Z88.5 Allergy status to narcotic agent; Z88.8 Allergy status to other drugs, medicaments and biological substances; Z91.041 Radiographic dye allergy status
CPT/HCPCS: 71045; 80048; 80076; 82550; 82553; 83690; 85025; 93005; 93041; 94760; 96374; 96375; 99283; 99285; J1170; J2550

== ENCOUNTER → 2024-02-26 | Outpatient (REF) | payer OTHER ==
[~2024-02-26] MED LIST changes: +CARA1TAB6 PO; -OLME1TAB49 PO; +OLME1TAB91 PO; +PEPC1TAB5 PO
[2024-02-26 16:46] LABS: APPEARANCE, URINE CLEAR (CLEAR); BACTERIA, URINE AUTO NEGATIVE (NEGATIVE); BILIRUBIN, URINE AUTO NEGATIVE (NEGATIVE); BLOOD, URINE BLOOD NEGATIVE (NEGATIVE); COLOR, URINE YELLOW (YELLOW); GLUCOSE, URINE (UA) AUTO NEGATIVE (NEGATIVE); KETONE, URINE AUTO NEGATIVE (NEGATIVE); LEUKOCYTE ESTERASE, URINE AUTO TRACE (NEGATIVE); MUCUS, URINE SMALL (NEGATIVE); NITRITE, URINE AUTO NEGATIVE (NEGATIVE); PROTEIN, URINE AUTO NEGATIVE (NEGATIVE); RBC, URINE AUTO 1 /HPF (0-3); SPECIFIC GRAVITY URINE AUTO 1.019 (1.002-1.035); SQUAMOUS EPITHELIAL CELL UR AU 0 /HPF (0-6); UROBILINOGEN, URINE AUTO 0.2 mg/dL (0.0-2.0); WBC, URINE AUTO 2 /HPF (0-3)
== END ==
LOC: M LAB REF 16:22
PROVIDERS: ATTEND Physician Assistant Medical
DX: N39.0 Urinary tract infection, site not specified (principal)

== ENCOUNTER 2024-03-22 18:47 | Emergency (ER) | payer OTHER ==
[~2024-03-22] VITALS: Ht 160 cm; Wt 146.8 kg
[2024-03-22 19:53] LABS: BASO % 0.4 % (0.0-1.0); EOS # 0.3 10^3/uL (0.0-0.5); EOS % 2.7 % (0.0-3.0); HEMATOCRIT 36.9 % (36.0-47.0); HEMOGLOBIN 11.3 g/dl (12.0-15.5); LYMPH % 21.4 % (24.0-44.0); MEAN CORPUSCULAR HEMOGLOBIN 23.9 pg (27.0-33.0); MEAN CORPUSCULAR HGB CONC 30.6 g/dl (32.0-36.5); MONO # 0.4 10^3/uL (0.0-0.8); MONO % 4.7 % (2.0-8.0); NEUTROPHILS # 6.6 10^3/uL (1.5-8.5); NEUTROPHILS % 70.6 % (36.0-66.0); PLATELET COUNT, AUTOMATED 273 10^3/uL (150-450); RED BLOOD COUNT 4.73 10^6/uL (4.00-5.40); WHITE BLOOD COUNT 9.3 10^3/uL (4.0-10.0)
[2024-03-22 20:18] LABS: LIPASE 25 U/L (12-53)
[2024-03-22 20:20] LABS: ALBUMIN 3.5 G/DL (3.2-5.2); ALKALINE PHOSPHATASE 91 U/L (46-116); ALT/SGPT 17 U/L (7.0-40); AST/SGOT 8 U/L (<34); BILIRUBIN,DIRECT < 0.1 MG/DL (<0.4); BILIRUBIN,TOTAL 0.3 MG/DL (0.3-1.2); BLOOD UREA NITROGEN 15 MG/DL (9-23); CALCIUM LEVEL 8.8 MG/DL (8.5-10.1); CARBON DIOXIDE LEVEL 26 MMOL/L (20-31); CHLORIDE LEVEL 107 MMOL/L (98-107); GLOMERULAR FILTRATION RATE > 60.0 (>58); GLUCOSE, FASTING 100 MG/DL (60-100); POTASSIUM SERUM 4.1 MMOL/L (3.5-5.1); SODIUM LEVEL 140 MMOL/L (136-145); TOTAL PROTEIN 6.8 G/DL (5.7-8.2)
[2024-03-22 20:57] VITALS: BP 165/87; TEMP 98.4; O2SAT 97
== END 2024-03-22 22:37 | disposition left against medical advice (07) ==
LOC: M ED 18:47
DX: Z53.21 Procedure and treatment not carried out due to patient leaving prior to being seen by health care provider (principal)

== ENCOUNTER → 2024-04-02 | Outpatient (REF) | payer OTHER ==
[2024-04-02 10:29] LABS: BASO % 0.6 % (0.0-1.0); EOS # 0.2 10^3/uL (0.0-0.5); EOS % 3.1 % (0.0-3.0); HEMATOCRIT 37.3 % (36.0-47.0); HEMOGLOBIN 11.6 g/dl (12.0-15.5); LYMPH # 1.7 10^3/uL (1.5-5.0); LYMPH % 24.1 % (24.0-44.0); MEAN CORPUSCULAR HGB CONC 31.1 g/dl (32.0-36.5); MEAN CORPUSCULAR VOLUME 77.1 fl (80.0-96.0); MONO # 0.4 10^3/uL (0.0-0.8); MONO % 5.1 % (2.0-8.0); NEUTROPHILS # 4.8 10^3/uL (1.5-8.5); NEUTROPHILS % 66.8 % (36.0-66.0); PLATELET COUNT, AUTOMATED 350 10^3/uL (150-450); RED BLOOD COUNT 4.84 10^6/uL (4.00-5.40); WHITE BLOOD COUNT 7.2 10^3/uL (4.0-10.0)
[2024-04-02 11:04] LABS: BLOOD UREA NITROGEN 13 MG/DL (9-23); CALCIUM LEVEL 8.5 MG/DL (8.5-10.1); CARBON DIOXIDE LEVEL 24 MMOL/L (20-31); CHLORIDE LEVEL 107 MMOL/L (98-107); CREATININE FOR GFR 0.77 MG/DL (0.55-1.30); GLOMERULAR FILTRATION RATE > 60.0 (>58); GLUCOSE, FASTING 97 MG/DL (60-100); IRON (FE) 31 UG/DL (50-170); PERCENT SATURATION 7.9 % (13.2-45.0); POTASSIUM SERUM 4.6 MMOL/L (3.5-5.1); SODIUM LEVEL 139 MMOL/L (136-145); TOTAL IRON BINDING CAPACITY 394 UG/DL (250-425)
[2024-04-02 11:07] LABS: FERRITIN 13.4 NG/ML (7.3-270.7)
== END ==
LOC: M LAB REF 09:49
PROVIDERS: ATTEND Nurse Practitioner Family
DX: R60.0 Localized edema (principal); Z83.2 Family history of diseases of the blood and blood-forming organs and certain disorders involving the immune mechanism; E61.1 Iron deficiency

== ENCOUNTER → 2024-04-26 | Outpatient (REF) | payer OTHER ==
[2024-04-26 17:40] LABS: HEMOGLOBIN A1c 5.4 % (4.0-6.0)
[2024-04-26 17:44] LABS: CHOLESTEROL RISK RATIO 6.13 (<5); LDL CHOLESTEROL 134.8 MG/DL (<100); THYROID STIMULATING HORMONE 1.736 uIU/ML (0.55-4.78)
== END ==
LOC: M LAB REF 16:44
PROVIDERS: ATTEND Physician Assistant
DX: E66.9 Obesity, unspecified (principal)

== ENCOUNTER → 2024-10-25 | Outpatient (CLI) | payer OTHER ==
[~2024-10-25] MED LIST changes: +POTA1TAB23
== END ==
LOC: M EKG 08:23
PROVIDERS: ATTEND Physician Assistant
DX: R00.2 Palpitations (principal); Z53.9 Procedure and treatment not carried out, unspecified reason